=== PATIENT | female | born 1965 | race Caucasian/White ===

== ENCOUNTER 2023-01-20 20:25 | Emergency (ER) | payer MEDICAID, SELFPAY ==
[2023-01-20 20:37] VITALS: BP 177/95; PULSE 64; RESP 16; O2SAT 99; BMI 21.4
== END 2023-01-20 21:01 | disposition left against medical advice (07) ==
PROVIDERS: Emergency Provider Emergency Medicine
DX: Z53.21 Procedure and treatment not carried out due to patient leaving prior to being seen by health care provider (principal)

== ENCOUNTER 2023-04-06 13:01 | Outpatient (OUT) | payer MEDICAID, SELFPAY ==
--- NOTE | 2023-04-06 13:03 | MM_ITS ---
Patient Name: JERI SADLER MR#: [id number] : 1965 Exam Date: 04/06/2023 Ordering Doctor: Shaikh Zakia Garcia . RADIOLOGY REPORT PROCEDURE: MM TOMOSYNTHESIS SCREENING BI COMPARISON: None. INDICATIONS: Screening Calculator Name NCI Breast Cancer Risk Assessment Tool 5 Year Breast Cancer Risk 0.90% Lifetime Breast Cancer Risk 5.70% Personal Breast Cancer No Personal Ovarian Cancer No Treatments None Family Cancers None LOCATION: [facility] BREAST COMPOSITION: Scattered areas fibroglandular density. FINDINGS: DIAGNOSTIC CATEGORY 2--BENIGN FINDING: Scattered benign-appearing nodules are present. Scattered benign-appearing calcifications are present. Scattered benign-appearing lymph nodes are present. RIGHT BREAST: No significant suspicious finding. LEFT BREAST: No significant suspicious finding. RECOMMENDATIONS: ROUTINE MAMMOGRAM AND CLINICAL EVALUATION IN 12 MONTHS. PLEASE NOTE: A NORMAL MAMMOGRAM DOES NOT EXCLUDE THE POSSIBILITY OF BREAST CANCER. A CLINICALLY SUSPICIOUS PALPABLE LUMP SHOULD BE BIOPSIED. Dictated by: Pato Owen MD on 04/07/2023 at 09:20 Approved by: Pato Owen MD on 04/07/2023 at 09:21
== END 2023-04-06 13:02 | disposition home or self-care (01) ==
LOC: MAMMO 13:01
PROVIDERS: PCP Internal Medicine; Visit Provider Internal Medicine
DX: Z12.31 Encounter for screening mammogram for malignant neoplasm of breast (principal)
CPT/HCPCS: 77063; 77067

== ENCOUNTER 2023-07-01 16:35 | Emergency (ER) | payer MEDICAID, SELFPAY ==
[2023-07-01 16:40] VITALS: BP 160/98; PULSE 75; RESP 18; TEMP 36.8; O2SAT 98; BMI 22.4
[2023-07-01 16:49] VITALS: O2SAT 98
--- NOTE | 2023-07-01 16:54 | ED.GENADUL1 ---
HPI - General Adult General Chief complaint: Extremity Injury, Upper Stated complaint: Upper Extremity pain Time Seen by Provider: 07/01/23 16:44 Source: patient and family Mode of arrival: walk-in History of Present Illness HPI narrative: This patient presents with severe pain in her left axillary area. It radiates down into her arm. She has no history of trauma or injury. She has not had previous neck surgery or vascular disease. She was a heavy tobacco user but she said her x-rays have never shown anything abnormal to the best of her knowledge. She he upon further questioning admits that sometimes the hand goes numb. She is right-hand dominant. She said this has been going on for at least 3 to 4 days but she was hesitant to come to the hospital despite her male senior living sales counselor urging her to do so several days ago. She has not had CT or MRI of her neck or chest. She was seen on arrival here and will be given analgesics and imaging will be conducted. Related Data Home Medications Medication Instructions Recorded Confirmed gabapentin 300 mg capsule 300 mg PO QPM 07/01/23 07/01/23 Allergies Allergy/AdvReac Type Severity Reaction Status Date / Time dexamethasone [From Decadron] Allergy Severe Verified 07/01/23 16:47 methylprednisolone Allergy Severe Verified 07/01/23 16:47 [From Solu-Medrol] Penicillins Allergy Severe Verified 07/01/23 16:47 prednisone Allergy Severe Verified 07/01/23 16:47 Exam Constitutional Vital Signs, click to edit/add: Last Vital Signs Temp 98.3 F 07/01/23 16:40 Pulse 75 07/01/23 16:40 Resp 18 07/01/23 16:40 BP 160/98 H 07/01/23 16:40 Pulse Ox 98 07/01/23 16:49 O2 Del Method Room Air 07/01/23 16:49 Course Vital Signs Vital signs: Vital Signs Temperature 98.3 F 07/01/23 16:40 Pulse Rate 75 07/01/23 16:40 Respiratory Rate 18 07/01/23 16:40 Blood Pressure 160/98 H 07/01/23 16:40 Pulse Oximetry 98 07/01/23 16:40 Oxygen Delivery Method Room Air 07/01/23 16:40 Temperature 98.3 F 07/01/23 16:40 Pulse Rate 75 07/01/23 16:40 Respiratory Rate 18 07/01/23 16:40 Blood Pressure 160/98 H 07/01/23 16:40 Pulse Oximetry 98 07/01/23 16:49 Oxygen Delivery Method Room Air 07/01/23 16:49 Medical Decision Making MDM Narrative Medical decision making narrative: This patient is at a CT scan that shows some spinal stenosis. There is an incidental thyroid nodule and this was discussed with the patient and the family. They should have that ultrasound done as an outpatient but that is not an emergency condition at this time. She states that she did not have a severe allergic reaction but when she takes pills it upsets her stomach so she is accepting of an intravenous dose of Decadron. I will also give her analgesics. Her findings and symptoms are most consistent with spinal stenosis in the cervical area. She was told to check her insurance policy and present herself to the tertiary hospital tomorrow morning to have this further evaluated and potentially even going to the emergency room if she cannot get referral to neurology at a tertiary facility. She understands and agrees for that recommendation. She will be given a copy of her CT scan. Discharge Plan Discharge Chief Complaint: Extremity Injury, Upper Clinical Impression: Cervical disc disorder with radiculopathy Patient Disposition: Home, Self-Care Time of Disposition Decision: 19:01 Prescriptions / Home Meds: No Action gabapentin 300 mg capsule 300 mg PO QPM Additional Instructions: Follow-up at tertiary center tomorrow with your CT scans. Omar as needed Referrals: Shaikh Garcia MD [Primary Care Provider] - 1 week Stand Alone Forms: Portal Instructions
--- NOTE | 2023-07-01 16:55 | XR_ITS ---
The [address] [address] Patient Name: JERI SADLER MRN: [id number] date: 1965 Sex: F Assigned Patient Location: ER Current Patient Location: ER Accession/Order Number: [id number] Exam Date: 07/01/2023 15:20 Report Date: 07/01/2023 18:26 At the request of: ESME MCCRARY Procedure: XR chest 1V EXAM: XR chest 1V HISTORY: Left arm and chest pain COMPARISON: None. TECHNIQUE: Chest X-ray AP, 1 view FINDINGS: Support devices: None. Lungs/pleura: No consolidation, effusion, or pneumothorax. Heart and mediastinum: Normal contours. Bones: No acute abnormality identified. XR/XR chest 1V Impression: No radiographic evidence of acute cardiopulmonary process. Electronically authenticated by: FABIANA ERAZO Date: 07/01/2023 18:26
--- NOTE | 2023-07-01 16:57 | CT_ITS ---
The [address] [address] Patient Name: JERI SADLER MRN: [id number] date: 1965 Sex: F Assigned Patient Location: ER Current Patient Location: ER Accession/Order Number: [id number] Exam Date: 07/01/2023 17:26 Report Date: 07/01/2023 18:29 At the request of: ESME MCCRARY Procedure: CT chest w con EXAM: CT chest w con HISTORY: Pain upper left chest left axilla COMPARISON: None. TECHNIQUE: Axial CT imaging was performed through the chest with intravenous contrast. Multiplanar reformats were performed. Dose reduction techniques were achieved by using automated exposure control and/or adjustment of mA and/or kV according to patient size and/or use of iterative reconstruction technique. FINDINGS: Lungs: No consolidation, mass, or effusion. Airways: Normal. Mediastinum: No adenopathy. Aorta: No aneurysm. Cardiac: Normal size. No pericardial effusion. Pulmonary vasculature: Normal morphology. Bones: No acute bony abnormality. Axilla: No adenopathy. Thyroid gland: There is a 0.5 cm low density in the right thyroid gland, may represent thyroid nodule. Correlation with thyroid ultrasound thyroid function tests is recommended. Soft tissues: Unremarkable. Upper abdomen: Small hiatal hernia. Other findings: None. CT/CT chest w con IMPRESSION: No acute abnormality. No lymphadenopathy. Small hiatal hernia. 0.5 cm low density in the right thyroid gland, may represent thyroid nodule. Correlation with thyroid ultrasound thyroid function tests is recommended. Electronically authenticated by: FABIANA ERAZO Date: 07/01/2023 18:29
--- NOTE | 2023-07-01 16:57 | CT_ITS ---
The [address] [address] Patient Name: JERI SADLER MRN: [id number] date: 1965 Sex: F Assigned Patient Location: ER Current Patient Location: ER Accession/Order Number: [id number] Exam Date: 07/01/2023 17:26 Report Date: 07/01/2023 18:31 At the request of: ESME MCCRARY Procedure: CT cervical spine wo con EXAM: CT cervical spine wo con HISTORY: Numbness and weakness of the left arm. TECHNIQUE: Axial CT scans through the cervical spine were obtained without contrast administration. Sagittal and coronal reconstruction images were obtained. Dose reduction techniques were achieved by using: automated exposure control and/or adjustment of mA and /or kV according to patient size and/or use of iterative reconstruction technique. COMPARISON: None. FINDINGS: Reversal of cervical lordosis is present. Decreased disc height from C3 down to T1. A small posterior central disc protrusion each at C3-C4, C4-C5 and C5-C6 without central spinal stenosis. Moderate right C2-C3 facet arthropathy. Moderate-severe stenosis of the left C3-C4 and right C5-C6 neural foramina secondary to decreased disc height and uncovertebral hypertrophy. Prevertebral soft tissue space appears normal. Visualized intracranial contents appear normal. A 1.7 x 1.9 cm right thyroid nodule is present. Visualized neck shows no adenopathy. Visualized lung apices are clear. CT/CT cervical spine wo con IMPRESSION: No central spinal stenosis. Moderate-severe stenosis of the left C3-C4 and right C5-C6 neural foramina secondary to decreased disc height and uncovertebral hypertrophy. A 1.7 x 1.9 cm right thyroid nodule is present. Please consider a thyroid ultrasound on a nonemergent basis. Electronically authenticated by: PATTY NAIR Date: 07/01/2023 18:31
[2023-07-01] MEDS: HYDROMORPHONE HCL 1 MG/ML CARTRIDGE IVP (17:15)
--- OUTSIDE RECORDS SUMMARY | 2023-07-01 17:16 | XMS_ITS | CCD ---
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 may include: Cuts. Bello. Bruises. Sore muscles and muscle strains. Headaches. You may have stiffness and soreness for the first several hours. You may feel worse after waking upthe first morning after the collision. These injuries often feel worse for the first 24 48 hours. Your injuries should then begin to improve with each day. How quickly you improve often depends on: The severity of the collision. The number of injuries you have. The location and nature of the injuries. Whether you were wearing a seat belt and whether your airbag deployed. A head injury may result in a concussion, which is a type of brain injury that can have serious effects. If you have a concussion, you should rest as told by your health care provider. You must be very careful to avoid having a second concussion. Follow these instructions at home: Medicines Take ksfs-fyt-yforoko and prescription medicines only as told by your health care provider. If you were prescribed antibiotic medicine, take or apply it as told by your health care provider. Do not stop using the antibiotic even if your condition improves. If you have a wound or a burn: Clean your wound or burn as told by your health care provider. ?Wash it with mild soap and water. ?Rinse it with water to remove all soap. ?Pat it dry with a clean towel. Do not rub it. ?If you were told to put an ointment or cream on the wound, do so as told by your health care provider. Follow instructions from your health care provider about how to take care of your wound or burn. Make sure you: ?Know when and how to change or remove your bandage (dressing). Always wash your hands with soap and water before and after you change your dressing. If soap and water are not available, use hand electrifier operator. ?Leave stitches (sutures), skin glue, or adhesive strips in place, if this applies. These skin closures may need to stay in place for 2 weeks or longer. If adhesive strip edges start to loosen and curl up, you may trim the loose edges. Do not remove adhesive strips completely unless your health care provider tells you to do that. Do not: ?Scratch or pick at the wound or burn. ?Break any blisters you may have. ?Peel any skin. Avoid exposing your burn or wound to the sun. Raise (elevate) the wound or burn above the level of your heart while you are sitting or lying down. This will help reduce pain, pressure, and swelling. If you have a wound or burn on your face, you may want to sleep with your head elevated. You may do this by putting an extra pillow under your head. Check your wound or burn every day for signs of infection. Check for: ?More redness, swelling, or pain. ?More fluid or blood. ?Warmth. ?Pus or a bad smell. Activity Rest. Rest helps your body to heal. Make sure you: ?Get plenty of sleep at night. Avoid staying up late. ?Keep the same bedtime hours on weekends and weekdays. Ask your health care provider if you have any lifting restrictions. Lifting can make neck or back pain worse. Ask your health care provider when you can drive, ride a bicycle, or use heavy machinery. Your ability to react may be slower if you injured your head. Do not do these activities if you are dizzy. If you are told to wear a brace on an injured arm, leg, or other part of your body, follow instructions from your health care provider about any activity restrictions related to driving, bathing, exercising, or working. General instructions If directed, put ice on the injured areas. This can help with pain and swelling. ?Put ice in a plastic bag. ?Place a towel between your skin and the bag. ?Leave the ice on for 20 minutes, 2 3 times a day. Drink enough fluid to keep your urine pale yellow. Do not drink alcohol. Maintain good nutrition. Keep all follow-up visits as told by your health care provider. This is important. Contact a health care provider if: Your symptoms get worse. You have neck pain that gets worse or has not improved after 1 week. You have signs of infection in a wound or burn. You have a fever. You have any of the following symptoms for more than 2 weeks after your motor vehicle collision: ?Lasting (chronic) headaches. ?Dizziness or balance problems. ?Nausea. ?Vision problems. ?Increased sensitivity to noise or light. ?Depression or mood swings. ?Anxiety or irritability. ?Memory problems. ?Trouble concentrating or paying attention. ?Sleep problems. ?Feeling tired all the time. Get help right away if: You have: ?Numbness, tingling, or weakness in your arms or legs. ?Severe neck pain, especially tenderness in the middle of the back of your neck. ?Changes in bowel or bladder control. ?Increasing pain in any area of your body. ?Swelling in any area of your body, especially your legs. ?Shortness of breath or light-headedness. ?Chest pain. ?Blood in your urine, stool, or vomit. ?Severe pain in your abdomen or your back. ?Severe or worsening headaches. ?Sudden vision loss or double vision. Your eye suddenly becomes red. Your pupil is an odd shape or size. Summary After a motor vehicle collision, it is common to have injuries to the head, face, arms, and body. Follow instructions from your health care provider about how to take care of a wound or burn. If directed, put ice on your injured areas. Contact a health care provider if your symptoms get worse. Keep all follow-up visits as told by your health care provider. This information is not intended to replace advice given to you by your health care provider. Make sure you discuss any questions you have with your health care provider. Document Released: 04/19/2006 Document Revised: 07/03/2019 Document Reviewed: 07/05/2019 [employer] Patient Education 2020 [employer]. 06/29/2022 19:18:05 Cervical Sprain, Aghi-tr-Xcaz Cervical Sprain A cervical sprain is a stretch or tear in the tissues that connect bones (ligaments) in the neck. Most neck (cervical) sprains get better in 4 6 weeks. Follow these instructions at home: If you have a neck collar: Wear it as told by your doctor. Do not take off (do not remove) the collar unless your doctor says that this is safe. Ask your doctor before adjusting your collar. If you have long hair, keep it outside of the collar. Ask your doctor if you may take off the collar for cleaning and bathing. If you may take off the collar: ?Follow instructions from your doctor about how to take off the collar safely. ?Clean the collar by wiping it with mild soap and water. Let it air-dry all the way. ?If your collar has removable pads: ?Take the pads out every 1 2 days. ?Hand wash the pads with soap and water. ?Let the pads air-dry all the way before you put them back in the collar. Do not dry them in a clothes dryer. Do not dry them with a office chair assembler. ?Check your skin under the collar for irritation or sores. If you see any, tell your doctor. Managing pain, stiffness, and swelling Use a cervical traction device, if told by your doctor. If told, put heat on the affected area. Do this before exercises (physical therapy) or as often as told by your doctor. Use the heat source that your doctor recommends, such as a moist heat pack or aheating pad. ?Place a towel between your skin and the heat source. ?Leave the heat on for 20 30 minutes. ?Take the heat off (remove the heat) if your skin turns bright red. This is very important if you cannot feel pain, heat, or cold. You may have a greater risk of getting burned. Put ice on the affected area. ?Put ice in a plastic bag. ?Place a towel between your skin and the bag. ?Leave the ice on for 20 minutes, 2 3 times a day. Activity Do not drive while wearing a neck collar. If you do not have a neck collar, ask your doctor if it is safe to drive. Do not drive or use heavy machinery while taking prescription pain medicine or muscle relaxants, unless your doctor approves. Do not lift anything that is heavier than 10 lb (4.5 kg) until your doctor tells you that it is safe. Rest as told by your doctor. Avoid activities that make you feel worse. Ask your doctor what activities are safe for you. Do exercises as told by your doctor or physical therapist. Preventing neck sprain Practice good posture. Adjust your workstation to help with this, if needed. Exercise regularly as told by your doctor or physical therapist. Avoid activities that are risky or may cause a neck sprain (cervical sprain). General instructions Take yxad-tpj-tnglqyg and prescription medicines only as told by your doctor. Do not use any products that contain nicotine or tobacco. This includes cigarettes and e-cigarettes. If you need help quitting, ask your doctor. Keep all follow-up visits as told by your doctor. This is important. Contact a doctor if: You have pain or other symptoms that get worse. You have symptoms that do not get better after 2 weeks. You have pain that does not get better with medicine. You start to have new, unexplained symptoms. You have sores or irritated skin from wearing your neck collar. Get help right away if: You have very bad pain. You have any of the following in any part of your body: ?Loss of feeling (numbness). ?Tingling. ?Weakness. You cannot move a part of your body (you have paralysis). Your activity level does not improve. Summary A cervical sprain is a stretch or tear in the tissues that connect bones (ligaments) in the neck. If you have a neck (cervical) collar, do not take off the collar unless your doctor says that this is safe. Put ice on affected areas as told by your doctor. Put heat on affected areas as told by your doctor. Good posture and regular exercise can help prevent a neck sprain from happening again. This information is not intended to replace advice given to you by your health care provider. Make sure you discuss any questions you have with your health care provider. Document Released: 10/05/2008 Document Revised: 08/09/2019 Document Reviewed: 12/29/2016 [employer] Patient Education 2020 [employer]. Follow Up Care 06/29/2022 17:32:07 With:LEONARDA MITTAL Address: [facility] [place], [facility] [address] [phone]- Business (1) When:07/02/2022 18:52:34 [facility]12[facility]06[facility]* Encounter Date Diagnosis Assessment Notes Treatment Notes Treatment Clinical Notes Mar, Irritable bowel syndrome with constipation (ICD-10 - K58.1) Start Amitiza 24mcg bid Follow up in 3-4 months Mar, GERD (gastroesophageal reflux disease) (ICD-10 - K21.9) Continue Pantoprazole bid Mar, Epigastric abdominal pain (ICD-10 - R10.13) Mar, Rectal bleeding (ICD-10 - K62.5) [facility] Other 08-10-2022 Evaluation note* Encounter Date Diagnosis Assessment Notes Treatment Notes Treatment Clinical Notes Dec, Irritable bowel syndrome with constipation (ICD-10 - K58.1) Stop Miralax for one week. Then titrate dose as needed according to bowel movements. Dec, Rectal bleeding (ICD-10 - K62.5) Pt to call if bleeding continues Dec, GERD (gastroesophageal reflux disease) (ICD-10 - K21.9) Continue Pantoprazole [facility] Other 02-09-2022 Evaluation note* Encounter Date Diagnosis Assessment Notes Treatment Notes Treatment Clinical Notes Jun, GERD (gastroesophageal reflux disease) (ICD-10 - K21.9) Continue pantoprazole - encouraged patient to take it 30 minutes prior to the first meal and the last meal of the day. Jun, Constipation (ICD-10 - K59.00) Start Miralax powder daily. Titration dose discussed with patient. [facility] Other Evaluation + Plan note No data available for this section [facility] note[facility] assessment information available [facility] Work Phone: Evaluation noteNo InformationNort Peak [employer] Other History and physical note Author Jaime Boyd [facility] April 07, 2022 12:42pm Note Date/Time April 07, 2022 1 2:42pm [facility] [address] [place] [address] Gastroenterology H&P Signed Patient: Magnolia Sadler MR#: [id number] : 1965 Acct:[id number] Age/Sex: 56 / F Adm Date: 2 Loc: Room: Type: [facility] Attending Dr: Jaime Boyd MD Copies to: NON STAFF Jaime Boyd MD~ Date of Service: 04/07/2022 HISTORY & PHYSICAL: Patient's history with special attention to the cardiovascular, pulmonary systems and the current problem was reviewed with the patient immediately prior to the procedure. Present medications and doses reviewed in the EMR. Allergies and pertinent laboratory tests were also reviewedat this time in the EMR. The physical examination, as below, was then performed. Indication, assessment and HPI: 56-year-old pink female presents for flex sig toevaluate rectal bleed Family history of GI malignancy? No PHYSICAL EXAMINATION Mouth and Pharynx : Moist mucus membranes, normal dentition Cardiac: Regular rate, regular rhythm Pulmonary: Clear to auscultation bilaterally, no wheezing Neurological: Alert and oriented x3, no focal deficits noted Abdomen: Abdomen soft, non-tender REVIEW OF SYSTEMS Constitutional: Denies malaise, fevers Cardiovascular: Denies chest pain, palpitations Respiratory: Denies shortness of breath, wheezing Gastrointestinal: Per HPI Genitourinary: Denies dysuria, polyuria Musculoskeletal: Denies joint swelling, joint stiffness Neurological: Denies numbness, tingling Integumentary: Denies rashes, skin lesions Endocrine: Denies fatigue, weight loss Written informed consent obtained from the patient. Risks (including but not limited to perforation, infection, bloating, bleeding, need for emergent surgeryand loss of life), benefits and alternatives explained and questions answered. The patient verbalized understanding. Based on history patient is an appropriate candidate for the procedure. Jaime Boyd MD Documented By: Jaime Boyd MD 04/07/221241 Signed By: <Electronically signed by Jaime Boyd MD> 04/07/22 1242 [facility] Work Phone: [employer] general Narrative - Reported* Type Description Date Surgical History HERNIA REPAIR/BOWEL OBSTRUCTION Surgical History TRIGGER FINGER - MIDDLE FINGER, RIGHT HAND Hospitalization History see above [facility] [employer] Other History general Narrative - Reported* Type Description Date Surgical History hernia repair/bowel obstruction Surgical History trigger finger-middle finger, r ight hand Hospitalization History see above [facility] [employer] Other Progress note No data available for this section [facility] Chief Complaint and Reason for Visit Chief Complaint rectal bleeding, irr itable bowel syndrome with co Family History Relationship Condition Age at Onset Recorded Date/T mao father Diabetes mellitus Unknown Malignant neoplasm of bone Unknown Not Specified Heart disease Unknown Advance Directives Advance Directive Response Recorded Date/ Time Advance Directives No April 9:12am Summary Purpose Additional Source Comments REASON FOR VISIT (unrecogniz ed section and content) PATIENT HERE FOR FOLLOW UP G ERD. PATIENT HAS SEEN DR MYERS IN THE PAST.PATIENT HERE FOR FOLLOW UP CONSTIPATION & GERD. PT WAS TO CONTINUE PANTOPRAZOLE AND START MIRALAX.PATIENT HERE FOR 3 MONTH FOLLOW UPClinicalREFILLFCCC smoking referral Care Teams (unrecognized sec tion and content) Team Status: Inactive Member Role Status Dates NON STAFF Primary Care Provider Active Jaime Boyd MD Attending Provider Active Team Status: Active Member Role Status Dates NON STAFF Primary Care Provider Active INFORMATION SOURCE (unrecogn ized section and content) DATE CREATED AUTHOR 04/08/2022 [facility] DATE CREATED AUTHOR AUTHOR'S ORGANIZ ATION 07/07/2022 [facility] DATE CREATED AUTHOR AUTHOR'S ORGANIZ ATION 07/10/2022 [facility] DATE CREATED AUTHOR AUTHOR'S ORGANIZ ATION 04/30/2023 [facility] EPIC FOR RECORDS PERTAINING TO PATIENTS WHO ARE OR HAVE BEEN ENROLLED IN A CHEMICAL DEPENDENCY/SUBSTANCEABUSE PROGRAM, SOME INFORMATION MAY BE OMITTED. This clinical summary was aggregated from multiple sources. Caution should be exercised in using it in the provision of clinical care. This summary normalizes information from multiple sources, and as a consequence, information in this document may materially change the coding, format and clinical context of patient data. In addition, data may be omitted in some cases. CLINICAL DECISIONS SHOULD BE BASED ON THE PRIMARY CLINICAL RECORDS. [facility] [employer] [facility]. provides no warranty or guarantee of the accuracy or completeness of information in this document.
[2023-07-01 17:18] LABS: Basophils Percent Auto 0.2 % (0.2-2.0); Eosinophils Absolute Auto 0.2 10^3/uL (0.0-0.7); Eosinophils Percent Auto 2.7 % (0.9-7.0); Hematocrit 39.2 % (36.0-48.0); Hemoglobin 12.8 g/dL (12.0-16.0); Immature Granulocytes Abs Auto 0.03 10^3/uL (0.00-0.03); Immature Granulocytes Pct Auto 0.4 % (0.0-0.5); Lymphocytes Absolute Auto 2.3 10^3/uL (1.2-3.8); Lymphocytes Percent Auto 28.7 % (20.5-60.0); Mean Corpuscular HGB Conc 32.7 g/dL (29.9-35.2); Mean Corpuscular Hemoglobin 29.4 pg (26.7-34.0); Mean Corpuscular Volume 90.1 fL (81.0-99.0); Mean Platelet Volume 9.8 fL (9.5-13.5); Monocytes Absolute Auto 0.4 10^3/uL (0.3-0.8); Monocytes Percent Auto 4.4 % (1.7-12.0); Neutrophils Absolute Auto 5.1 10^3/uL (1.4-6.5); Neutrophils Percent Auto 63.6 % (43.0-75.0); Platelet Count 271 10^3/uL (150-450); Red Blood Count 4.35 10^6/uL (4.20-5.40); Red Cell Distribution Width 12.9 % (11.0-15.0)
[2023-07-01 17:39] LABS: Alanine Aminotransferase 15 U/L (14-59); Albumin Globulin Ratio 1.1; Albumin Level 3.7 g/dL (3.4-5.0); Alkaline Phosphatase 74 U/L (46-116); Anion Gap 14.1; Aspartate Amino Transferase 10 U/L (15-37); BUN Creatinine Ratio 17.4; Bilirubin Total 0.6 mg/dL (0.2-1.0); Calcium 8.9 mg/dL (8.5-10.1); Carbon Dioxide 25.4 mmol/L (21.0-32.0); Chloride 106 mmol/L (98-107); Estimated GFR (African America >60 (>=60); Estimated GFR (Non-African Ame 52 (>=60); Globulin 3.5 g/dL; Glucose 105 mg/dL (74-106); Potassium 3.5 mmol/L (3.5-5.1); Sodium 142 mmol/L (136-145); Total Protein 7.2 g/dL (6.4-8.2)
[2023-07-01] MEDS: HYDROMORPHONE HCL 1 MG/ML CARTRIDGE IV (18:49)
[2023-07-01] MEDS: DEXAMETHASONE SOD PHOS 10 MG/ML VIAL IV (19:09)
[2023-07-01 19:24] VITALS: BP 175/94; PULSE 68; RESP 16; TEMP 36.9; O2SAT 98
== END 2023-07-01 19:27 | disposition home or self-care (01) ==
PROVIDERS: Emergency Provider Emergency Medicine Emergency Medical Services; PCP Internal Medicine
DX: M50.10 Cervical disc disorder with radiculopathy, unspecified cervical region (principal); Z79.899 Other long term (current) drug therapy
CPT/HCPCS: 36415; 71045; 71260; 72125; 80053; 85025; 96374; 96375; 96376; 99285; J1100; J1170; Q9967

== ENCOUNTER 2023-11-26 12:24 | Outpatient (OUT) | payer MEDICAID, SELFPAY ==
--- NOTE | 2023-11-26 12:28 | MR_ITS ---
The [address] [address] Patient Name: JERI SADLER MRN: [id number] date: 1965 Sex: F Assigned Patient Location: MRI Current Patient Location: Accession/Order Number: [id number] Exam Date: 11/26/2023 12:40 Report Date: 11/27/2023 14:47 At the request of: SHAIKH MIGUEL Procedure: MR cervical spine wo con MR cervical spine wo con, 11/26/2023 12:40 PM EDT INDICATION: Chronic neck pain with abnormal neurologic exam M54.2 G89.29 COMPARISON: Prior CT of the cervical spine dated 07/01/2023 TECHNIQUE: Multiplanar, multisequential MRI images of cervical spine were obtained without contrast. FINDINGS: There is loss of normal physiologic cervical lordosis. The vertebral heights are relatively preserved. The cervicomedullary junction is unremarkable. No definite signal abnormality within the spinal cord is noted. There are mild disc osteophyte complex associated with uncovertebral joint arthrosis from C3 to T1. At the level of C2-C3, there is mild bilateral neuroforaminal narrowing and no canal stenosis. At the level of C3-C4, there is moderate right and severe left neuroforaminal narrowing and no canal stenosis. At the level of C4-C5, there is severe bilateral neuroforaminal narrowing and moderate canal stenosis. At the level of C5-C6, there is severe bilateral neuroforaminal narrowing and moderate canal stenosis. At the level of C6-C7, there is severe bilateral neuroforaminal narrowing and mild canal stenosis. Level of C7-T1 is unremarkable. No definite muscular or ligamentous injury is noted. MR/MR cervical spine wo con IMPRESSION: Moderate to severe degenerative changes of the cervical spine in particular at C4-C5, C5-C6 and C6-C7. Electronically authenticated by: ALETHEA METCALF Date: 11/27/2023 14:47
--- OUTSIDE RECORDS SUMMARY | 2023-11-26 12:29 | XMS_ITS | CCD ---
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 blood pressure 80 mm[Hg] Jg Cartere [facility] 06-29-2022 18:56-0500 Heart rate 70 /min Jg Cartere [facility] 06-29-2022 18:56-0500 Mean blood pressure 97 mm[Hg] Jg Cartere [facility] 06-29-2022 18:56-0500 Respiratory rate 20 /min Jg Cartere [facility] 06-29-2022 18:56-0500 SaO2% (BldA) [Mass fraction] 97 % Jg Cartere [facility] 06-29-2022 18:56-0500 Systolic blood pressure 130 mm[Hg] Jg Cartere [facility] 06-29-2022 17:42-0500 Body temperature 98.78 [degF] Jg Cartere [facility] 06-29-2022 17:42-0500 Diastolic blood pressure 80 mm[Hg] Jg Cartere [facility] 06-29-2022 17:42-0500 Heart rate 87 /min Jg Cartere [facility] 06-29-2022 17:42-0500 Respiratory rate 20 /min Jg Cartere [facility] 06-29-2022 17:42-0500 SaO2% (BldA) [Mass fraction] 97 % Jg Cartere [facility] 06-29-2022 17:42-0500 Systolic blood pressure 194 mm[Hg] Jg Cartere [facility] 04-07-2022 13:31-0500 Diastolic blood pressure 94 mm[Hg] [facility] 04-07-2022 13:31-0500 Heart rate 64 /min [facility] 04-07-2022 13:31-0500 Respiratory rate 16 /min [facility] 04-07-2022 13:31-0500 SaO2% (BldA) [Mass fraction] 99 % [facility] 04-07-2022 13:31-0500 Systolic blood pressure 128 mm[Hg] [facility] 04-07-2022 11:49-0500 Body height 170.18 cm [facility] 04-07-2022 11:49-0500 Body temperature 98.8 [degF] [facility] 04-07-2022 11:49-0500 Body weight 62.59 kg [facility] 03-17-2022 12:15-0500 Body height 171.45 cm Jaime Boyd Other [facility] [employer] Other 03-17-2022 12:15-0500 Body mass index (BMI) [Ratio] 21.45 kg/m2 Jaime Chavezalfonso Other [email or web address] [facility] [employer] Other 03-17-2022 12:15-0500 Body weight 63.05 kg Jaime Chavezy Other [employer] Other 12-10-2021 14:15-0400 Body height 171.45 cm Jaime Boyd Other [employer] [facility] Other 12-10-2021 14:15-0400 Body mass index (BMI) [Ratio] 21.14 kg/m2 Jaime Estelatty Other [employer] [facility] Other 12-10-2021 14:15-0400 Body weight 62.14 kg Jaime Kathyy Other [employer] [facility] Other 12-10-2021 14:15-0400 Diastolic blood pressure 85 mm[Hg] Jaime Oliver Other [employer] [facility] Other 12-10-2021 14:15-0400 Systolic blood pressure 130 mm[Hg] Jaime Boyd Other [employer] Other 06-11-2021 16:45-0500 Body height 171.45 cm Jaime Boyd Other [employer] [facility] Other 06-11-2021 16:45-0500 Body mass index (BMI) [Ratio] 23.61 kg/m2 Jaime Kathyalfonso Other [employer] Other 06-11-2021 16:45-0500 Body weight 69.4 kg Jaime Oliver Other [employer] [facility] Other Encounters Encounter Date Encounter Type Care Provider Facility Start: 11-18-2023 End: 11-19-2023 ambulatory RAKAN ESTRELLA Not Available Start: 11-16-2023 End: 11-17-2023 ambulatory ANIYA AGUILAR Not Available Start: 11-11-2023 End: 11-17-2023 ambulatory RAKAN Vasquez LYNDAOJZEF Not Available Start: 11-02-2023 End: 11-02-2023 ambulatory ASHER FAWWAD Not Available Start: 07-08-2023 End: 07-08-2023 ambulatory ASHER FAWWAD Not Available Start: 06-08-2023 End: 06-08-2023 ambulatory Lady Cobos Other [employer] Other Start: 06-08-2023 Telephone encounter Lady Cobos [facility] Start: 04-28-2023 End: 04-28-2023 ambulatory ASHER FAWWAD Not Available Start: 07-09-2022 End: 07-09-2022 ambulatory Jaime Boyd Other [employer] Other Start: 07-09-2022 Telephone encounter Jaime [facility] Start: 07-05-2022 End: 07-05-[address] DOCTOR NDIAYE Facility: Start: 06-29-2022 End: 06-29-2022 Emergency department patient visit Jg Solis Facility:[facility] Start: 06-29-2022 End: 06-29-2022 Emergency department patient visit Jg Solis [facility] Start: 04-13-2022 End: 04-13-2022 ambulatory Jaime Boyd Other [facility] [facility] Other Start: 04-13-2022 Telephone encounter Jaime [facility] Start: 04-07-2022 End: 04-07-2022 ambulatory Jaime Boyd Facility:[facility] Start: 04-07-2022 End: 04-07-2022 Admission to same day surgery center [facility] Start: 04-07-2022 End: 04-07-2022 ambulatory [facility]FF [facility] Work Phone: Start: 03-17-2022 End: 03-17-2022 ambulatory Jaime Boyd Other [employer] Other Start: 03-17-2022 Patient encounter procedure Jaime Boyd [facility] Start: 12-10-2021 End: 12-10-2021 ambulatory Jaime Boyd Other [facility] [facility] Other Start: 12-10-2021 Patient encounter procedure Jaime Boyd [facility] Start: 06-11-2021 End: 06-11-2021 ambulatory Jaime Boyd Other [facility] [facility] Other Start: 06-11-2021 Patient encounter procedure Jaime Boyd [facility] Procedures Date Procedure Procedure Detail Performing Clinician Start: 04-07-2022 Flexible fiberoptic sigmoidoscopy Plan of Treatment Date Care Activity Detail Author Start: 04-07-2022 [facility] Patient Education Hemorrhoids [facility] Work Phone: Payers Date Payer Category Payer Medicaid [id number] 2020 Unknown [id number] 2.1 [id number] 1965 Unknown [id number] 2.16.84 [id number] 1965 Unknown [id number] 2.16.8 [id number] 1965 Unknown [id number] 2.16.84 [id number] 1965 Unknown [id number] 2.16.84 [id number] 1965 Unknown [id number] 2.16.84 [id number] 1965 Unknown [id number] 2.16.84 [id number] 1965 Unknown [id number] 2.16.84 [id number] 1965 Unknown [id number] [id number] .[id number] Self-pay Self Pay [id number] Unknown [id number] 2.1 [id number] Unknown [id number] Social History Date Type Detail Facility Unknown if ever smoked [facility] Other Sex Assigned At [facility] Start: 04-07-2022 [facility] Start: 1965 Sex Assigned At Female [facility] Start: 06-29-2022 Tobacco smoking status Light t obacco smoker (finding) [facility] Goals Date Patient Goal Desired Activity /State Functional Status Date Assessment Result Facility 06-29-2022 Functional Status N/A [facility] Clinical Notes 06-11-2021 to 07-09-2022 Note Date & Type Note Facility 07-09-2022 Evaluation note Encounter Date Diagnosis Assessment Notes Jul, Constipation (ICD-10 - K59.00) [facility] Other 02-27-2023 Hospital Discharge instructions Patient Education [...] Follow these instructions at home: Medicines Take lwus-acn-fvrbipt and prescription medicines only as told by [...] and water are not available, use hand eligibility specialist. ?Leave stitches (sutures), skin glue, or adhesive [...] 04/19/2006 Document Revised: 07/03/2019 Document Reviewed: 07/05/2019 [employer] Patient Education 2020 [employer]. 06/29/2022 19:18:05 Cervical Sprain, Mwwj-gl-Nbpd Cervical Sprain A cervical sprain is a [...] dryer. Do not dry them with a mathematics department chair. ?Check your skin under the collar for [...] neck sprain (cervical sprain). General instructions Take kmzk-fcz-wyunjfk and prescription medicines only as told by [...] 10/05/2008 Document Revised: 08/09/2019 Document Reviewed: 12/29/2016 [employer] Patient Education 2020 [employer]. Follow Up Care 06/29/2022 17:32:07 With:LEONARDA MITTAL Address: [address] [place] [address]- Business (1) When:07/02/2022 18:52:34 [facility]12[facility]06[facility]* Encounter Date Diagnosis Assessment Notes Treatment Notes Treatment Clinical Notes 15 Nov, 2022 Irritable bowel syndrome with constipation (ICD-10 - K58.1) Start Amitiza 24mcg bid Follow up in 3-4 months Mar, GERD (gastroesophageal reflux disease) (ICD-10 - K21.9) Continue Pantoprazole bid Mar, Epigastric abdominal pain (ICD-10 - R10.13) Mar, Rectal bleeding (ICD-10 - K62.5) [facility] Other 08-10-2022 Evaluation note* Encounter Date Diagnosis Assessment Notes Treatment Notes Treatment Clinical Notes Dec, Irritable bowel syndrome with constipation (ICD-10 - K58.1) Stop Miralax for one week. Then titrate dose as needed according to bowel movements. Dec, Rectal bleeding (ICD-10 - K62.5) Pt to call if bleeding continues Dec, GERD (gastroesophageal reflux disease) (ICD-10 - K21.9) Continue Pantoprazole [facility] Other 02-09-2022 Evaluation note* Encounter Date Diagnosis Assessment Notes Treatment Notes Treatment Clinical Notes Jun, GERD (gastroesophageal reflux disease) (ICD-10 - K21.9) Continue pantoprazole - encouraged patient to take it 30 minutes prior to the first meal and the last meal of the day. Jun, Constipation (ICD-10 - K59.00) Start Miralax powder daily. Titration dose discussed with patient. [facility] Other Evaluation + Plan note No data available for this section [facility] assessment information available [facility] Work Phone: Evaluation noteNo InformationNort [employer] Other History and physical note Author Jaime Boyd [facility] April 07, 2022 12:42pm Note Date/Time April 07, 2022 1 2:42pm [facility] [address] [place] [address] Gastroenterology H&P Signed Patient: Magnolia Sadler MR#: [id number] : 1965 Acct:[id number] Age/Sex: 56 / F Adm Date: 2 Loc: Room: Type: [facility] Attending Dr: Jaime Boyd MD Copies [...] Boyd MD Documented By: Jaime Boyd MD 04/07/22 124 Signed By: <Electronically signed by Jaime Boyd MD> 04/07/22 1242 [facility] Work Phone: History general Narrative - Reported* Type Description Date Surgical History HERNIA REPAIR/BOWEL OBSTRUCTION Surgical History TRIGGER FINGER - MIDDLE FINGER, RIGHT HAND Hospitalization History see above [facility] Other History general Narrative - Reported* Type Description Date Surgical History hernia repair/bowel obstruction Surgical History trigger finger-middle finger, r ight hand Hospitalization History see above [facility] Other Progress note No data available for this section [facility] Chief Complaint and Reason for Visit Chief Complaint rectal bleeding, irr itable bowel syndrome with co Family History No Family History Records Found Relationship Condition Age at Onset Recorded Date/T mao father Diabetes mellitus Unknown Malignant neoplasm of bone Unknown Not Specified Heart disease Unknown Advance Directives No Advanced Directives Records Found Advance Directive Response Recorded Date/ Time Advance [...] NON STAFF Primary Care Provider Active Jaime Body MD Attending Provider Active Team Status: Active Member Role Status Dates NON STAFF Primary Care Provider Active INFORMATION SOURCE (unrecogn ized section and content) DATE CREATED AUTHOR 04/08/2022 [facility] DATE CREATED AUTHOR AUTHOR'S ORGANIZ ATION 07/07/2022 [facility] DATE CREATED AUTHOR AUTHOR'S ORGANIZ ATION 07/10/2022 [facility] DATE CREATED AUTHOR AUTHOR'S ORGANIZ ATION 11/22/2023 [facility] EPIC FOR RECORDS PERTAINING TO PATIENTS [...] BE BASED ON THE PRIMARY CLINICAL RECORDS. [employer] provides no warranty or guarantee of the accuracy or completeness of information in this document.
== END 2023-11-26 12:25 | disposition home or self-care (01) ==
LOC: MRI 12:24
PROVIDERS: PCP Internal Medicine; Visit Provider Internal Medicine
DX: M54.2 Cervicalgia (principal); G89.29 Other chronic pain
CPT/HCPCS: 72141

== ENCOUNTER 2023-12-01 11:39 | Outpatient (OUT) | payer MEDICAID, SELFPAY ==
--- OUTSIDE RECORDS SUMMARY | 2023-12-01 11:44 | XMS_ITS | CCD ---
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 128 mm[Hg] [facility] 04-07-2022 11:49-0500 Body height 170.18 cm [facility] 04-07-2022 11:49-0500 Body temperature 98.8 [degF] [facility] 04-07-2022 11:49-0500 Body weight 62.59 kg [facility] 03-17-2022 12:15-0500 Body height 171.45 cm Jaime Boyd Other [facility] Other 03-17-2022 12:15-0500 Body mass index (BMI) [Ratio] 21.45 kg/m2 Jaime Chavezalfonso Other [facility] Other 03-17-2022 12:15-0500 Body weight 63.05 kg Jaime Chavezy Other [employer] Other 12-10-2021 14:15-0400 Body height 171.45 cm Jaime Boyd Other [employer] Other 12-10-2021 14:15-0400 Body mass index (BMI) [Ratio] 21.14 kg/m2 Jaime Estelatty Other [employer] Other 12-10-2021 14:15-0400 Body weight 62.14 kg Jaime Kathyy Other [employer] Other 12-10-2021 14:15-0400 Diastolic blood pressure 85 mm[Hg] Jaime Oliver Other [employer] Other 12-10-2021 14:15-0400 Systolic blood pressure 130 mm[Hg] Jaime Boyd Other [employer] Other 06-11-2021 16:45-0500 Body height 171.45 cm Jiame Boyd Other [employer] Other 06-11-2021 16:45-0500 Body mass index (BMI) [Ratio] 23.61 kg/m2 Jaime Kathyalfonso Other [employer] Other 06-11-2021 16:45-0500 Body weight 69.4 kg Jaime Oliver Other [employer] Other Encounters Encounter Date Encounter Type Care Provider Facility Start: 11-18-2023 End: 11-19-2023 ambulatory RAKAN ESTRELLA Not Available Start: 11-16-2023 End: 11-17-2023 ambulatory ANIYA AGUILAR Not Available Start: 11-11-2023 End: 11-17-2023 ambulatory RAKAN Vasquez LYNDAJOZEF Not Available Start: 11-02-2023 End: 11-02-2023 ambulatory ASHER FAWWAD Not Available Start: 07-08-2023 End: 07-08-2023 ambulatory ASHER FAWWAD Not Available Start: 06-08-2023 End: 06-08-2023 ambulatory Lady Cobos Other [employer] Other Start: 06-08-2023 Telephone encounter Lady Cobos [facility] Start: 04-28-2023 End: 04-28-2023 ambulatory ASHER FAWWAD Not Available Start: 07-09-2022 End: 07-09-2022 ambulatory Jaime Boyd Other [employer] Other Start: 07-09-2022 Telephone encounter Jaime [facility] Start: 07-05-2022 End: 07-05-[address] DOCTOR NDIAYE Facility: Start: 06-29-2022 End: 06-29-2022 Emergency department patient visit Jg Solis [place]: 06-29-2022 End: 06-29-2022 Emergency department patient visit Jg Solis [facility] Start: 04-13-2022 End: 04-13-2022 ambulatory Jaime Boyd Other [employer] Other Start: 04-13-2022 Telephone encounter Jaime [facility] Start: 04-07-2022 End: 04-07-2022 ambulatory Jaime Boyd Facility:[facility] Start: 04-07-2022 End: 04-07-2022 Admission to same day surgery center [facility] Start: 04-07-2022 End: 04-07-2022 [facility] Work Phone: Start: 03-17-2022 End: 03-17-2022 ambulatory Jaime Boyd Other [employer] Other Start: 03-17-2022 Patient encounter procedure Jaime Boyd [facility] Start: 12-10-2021 End: 12-10-2021 ambulatory Jaime Boyd Other [employer] Other Start: 12-10-2021 Patient encounter procedure Jaime Boyd [facility] Start: 06-11-2021 End: 06-11-2021 ambulatory Jaime Boyd Other [employer] Other Start: 06-11-2021 Patient encounter procedure Jaime Boyd [facility] Procedures Date Procedure Procedure Detail Performing Clinician Start: 04-07-2022 Flexible fiberoptic sigmoidoscopy Plan of Treatment Date Care Activity Detail Author Start: 04-07-2022 [facility] Patient Education Hemorrhoids [facility] Work Phone: Payers Date Payer Category Payer Medicaid [id number] 2020 Unknown [id number] 2.1 [id number] 1965 Unknown [id number] 2.16.84 [id number] 1965 Unknown [id number] 2.16.8 [id number] 1965 Unknown [id number] 2.16.84 [id number] 1965 Unknown [id number] 2.16.84 [id number] 1965 Unknown [id number] 2.16.84 [id number] 1965 Unknown [id number] 2.16.84 [id number] 1965 Unknown [id number] 2.16.84 [id number] 1965 Unknown [id number] 2.16.840 [id number] Self-pay Self Pay [id number] Unknown [id number] 2.1 [id number] Unknown [id number] Social History Date Type Detail Facility Unknown if ever smoked [employer] Other Sex Assigned At [facility] Start: 04-07-2022 [facility] Start: 1965 Sex Assigned At Female [facility] Start: 06-29-2022 Tobacco smoking status Light t obacco smoker (finding) [facility] Goals Date Patient Goal Desired Activity /State Functional Status Date Assessment Result Facility 06-29-2022 Functional Status N/A [facility] Clinical Notes 06-11-2021 to 07-09-2022 Note Date & Type Note Facility 07-09-2022 Evaluation note Encounter Date Diagnosis Assessment Notes Jul, Constipation (ICD-10 - K59.00) [facility] [facility] Other 02-27-2023 Hospital Discharge instructions Patient Education [...] Follow these instructions at home: Medicines Take yuao-yvi-mvwcmfe and prescription medicines only as told by [...] and water are not available, use hand waterproofer. ?Leave stitches (sutures), skin glue, or adhesive [...] 04/19/2006 Document Revised: 07/03/2019 Document Reviewed: 07/05/2019 [employer] Patient Education [address] 06/29/2022 19:18:05 Cervical Sprain, Rtob-[id number] Cervical Sprain A cervical sprain is a [...] dryer. Do not dry them with a hair weaver. ?Check your skin under the collar for [...] neck sprain (cervical sprain). General instructions Take maua-qyq-pucmgku and prescription medicines only as told by [...] 10/05/2008 Document Revised: 08/09/2019 Document Reviewed: 12/29/2016 [employer] Patient Education [address] Follow Up Care 06/29/2022 17:32:07 With:LEONARDA MITTAL Address: [address] [place] [address]- Business (1) When:07/02/2022 18:52:34 [facility]* Encounter Date Diagnosis Assessment Notes Treatment Notes Treatment Clinical Notes 15 Nov, 2022 Irritable bowel syndrome with constipation (ICD-10 - K58.1) Start Amitiza 24mcg bid Follow up in 3-4 months Mar, GERD (gastroesophageal reflux disease) (ICD-10 - K21.9) Continue Pantoprazole bid Mar, Epigastric abdominal pain (ICD-10 - R10.13) Mar, Rectal bleeding (ICD-10 - K62.5) [employer] Other 08-10-2022 Evaluation note* Encounter Date Diagnosis Assessment Notes Treatment Notes Treatment Clinical Notes Dec, Irritable bowel syndrome with constipation (ICD-10 - K58.1) Stop Miralax for one week. Then titrate dose as needed according to bowel movements. Dec, Rectal bleeding (ICD-10 - K62.5) Pt to call if bleeding continues Dec, GERD (gastroesophageal reflux disease) (ICD-10 - K21.9) Continue Pantoprazole [employer] Other 02-09-2022 Evaluation note* Encounter Date Diagnosis Assessment Notes Treatment Notes Treatment Clinical Notes Jun, GERD (gastroesophageal reflux disease) (ICD-10 - K21.9) Continue pantoprazole - encouraged patient to take it 30 minutes prior to the first meal and the last meal of the day. Jun, Constipation (ICD-10 - K59.00) Start Miralax powder daily. Titration dose discussed with patient. [employer] Other Evaluation + Plan note No data available for this section [facility] information [facility] Work Phone: Evaluation noteNo InformationNort [employer] Other History and physical note Author Jaime Boyd [facility] April 07, 2022 12:42pm Note Date/Time April 07, 2022 1 2:42pm [facility] [address] [place] [address] Gastroenterology H&P Signed Patient: Magnolia Sadler MR#: [id number] : 1965 Acct:[id number] Age/Sex: 56 / F Adm Date: 2 Loc: Room: Type: [facility] Attending Dr: Jaime Boyd MD [...] signed by Jaime Boyd MD> 04/07/22 1242 [facility] Work Phone: History general Narrative - Reported* Type Description Date Surgical History HERNIA REPAIR/BOWEL OBSTRUCTION Surgical History TRIGGER FINGER - MIDDLE FINGER, RIGHT HAND Hospitalization History see above [employer] Other History general Narrative - Reported* Type Description Date Surgical History hernia repair/bowel obstruction Surgical History trigger finger-middle finger, r ight hand Hospitalization History see above [employer] Other Progress note No data available for this section [facility] Chief Complaint and Reason for Visit [...] section and content) DATE CREATED AUTHOR 04/08/2022 [facility] DATE CREATED AUTHOR AUTHOR'S ORGANIZ ATION 07/07/2022 [facility] DATE CREATED AUTHOR AUTHOR'S ORGANIZ ATION 07/10/2022 [facility] DATE CREATED AUTHOR AUTHOR'S ORGANIZ ATION 11/22/2023 [facility] EPIC FOR RECORDS PERTAINING TO [...] BE BASED ON THE PRIMARY CLINICAL RECORDS. [employer] provides no warranty or guarantee of the accuracy or completeness of information in this document.
[2023-12-01 13:09] LABS: Estimated Average Glucose 105 mg/dL; Glycohemoglobin A1C 5.3 % (4.5-6.2)
[2023-12-01 13:24] LABS: Chol HDL Ratio 3.9; Cholesterol 264 mg/dL (<=200); HDL Cholesterol 67 mg/dL (40-60); TSH W/ REFLEX FT4 8.396 uIU/mL (0.358-3.740); Triglycerides 359 mg/dL (<=150); VLDL CHOLESTEROL 71.8 mg/dL
[2023-12-01 13:58] LABS: Free T4 0.68 ng/dL (0.76-1.46)
== END 2023-12-01 11:40 | disposition home or self-care (01) ==
LOC: LAB 11:41
PROVIDERS: PCP Internal Medicine; Visit Provider Internal Medicine
DX: E04.1 Nontoxic single thyroid nodule (principal); G25.81 Restless legs syndrome; Z13.220 Encounter for screening for lipoid disorders; Z13.1 Encounter for screening for diabetes mellitus
CPT/HCPCS: 36415; 80061; 82728; 83036; 84439; 84443

== ENCOUNTER 2023-12-02 13:53 | Outpatient (OUT) | payer MEDICAID, SELFPAY ==
--- NOTE | 2023-12-02 13:55 | US_ITS ---
[address] [address] Patient Name: JERI SADLER MRN: [id number] date: 1965 Sex: F Assigned Patient Location: US Current Patient Location: Accession/Order Number: [id number] Exam Date: 12/02/2023 13:56 Report Date: 12/03/2023 05:23 At the request of: SHAIKH MIGUEL Procedure: US thyroid EXAMINATION: US thyroid HISTORY: Thyroid Nodule COMPARISON: No relevant comparison available. FINDINGS: RIGHT LOBE: Heterogeneous echotexture and hypervascular. Contains a 19 mm TR 3 nodule within inferior pole. Lobe size: 4.9 x 1.3 x 1.5 cm LEFT LOBE: Heterogeneous echotexture and slightly hypervascular. Lobe size: 2.9 x 1.1 x 1.1 cm ISTHMUS: Slightly heterogeneous. Normal thickness. Thickness: 2 mm. US/US thyroid IMPRESSION: 1. 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 2. Right lobe contains a 19 mm TR 3 nodule. Follow-up in one year is recommended. TR3 (mildly suspicious): > 1.5 cm, follow-up ultrasound in 1, 3, and 5 years. > 2.5 cm, fine needle aspiration. Electronically authenticated by: GABBY SINHA Date: 12/03/2023 05:23
--- OUTSIDE RECORDS SUMMARY | 2023-12-02 14:09 | XMS_ITS | CCD ---
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 blood pressure 128 mm[Hg] [facility] 04-07-2022 11:49-0500 Body height 170.18 cm [facility] 04-07-2022 11:49-0500 Body temperature 98.8 [degF] [facility] 04-07-2022 11:49-0500 Body weight 62.59 kg [facility] 03-17-2022 12:15-0500 Body height 171.45 cm Jaime Boyd Other [facility] [employer] Other 03-17-2022 12:15-0500 Body mass index (BMI) [Ratio] 21.45 kg/m2 Jaime Chavezalfonso Other Other [facility] [employer] Other 03-17-2022 12:15-0500 Body weight 63.05 kg Jaime Chavezy Other [facility] Other 12-10-2021 14:15-0400 Body height 171.45 cm Jaime Boyd Other [facility] Other 12-10-2021 14:15-0400 Body mass index (BMI) [Ratio] 21.14 kg/m2 Jaime Estelatty Other [facility] Other 12-10-2021 14:15-0400 Body weight 62.14 kg Jaime Kathyy Other [facility] Other 12-10-2021 14:15-0400 Diastolic blood pressure 85 mm[Hg] Jaime Oliver Other [facility] Other 12-10-2021 14:15-0400 Systolic blood pressure 130 mm[Hg] Jaime Boyd Other [facility] Other 06-11-2021 16:45-0500 Body height 171.45 cm Jaime Boyd Other [facility] Other 06-11-2021 16:45-0500 Body mass index (BMI) [Ratio] 23.61 kg/m2 Jaime Kathyalfonso Other [facility] Other 06-11-2021 16:45-0500 Body weight 69.4 kg Jaime Oliver Other [facility] Other Encounters Encounter Date Encounter Type Care Provider Facility Start: 11-18-2023 End: 11-19-2023 ambulatory RAKAN ESTRELLA Not Available Start: 11-16-2023 End: 11-17-2023 ambulatory ANIYA AGUILAR Not Available Start: 11-11-2023 End: 11-17-2023 ambulatory RAKAN Vasquez LYNDAJOZEF Not Available Start: 11-02-2023 End: 11-02-2023 ambulatory ASHER FAWWAD Not Available Start: 07-08-2023 End: 07-08-2023 ambulatory ASHER FAWWAD Not Available Start: 06-08-2023 End: 06-08-2023 ambulatory Lady Cobos Other [facility] Other Start: 06-08-2023 Telephone encounter Lady Cobos [facility] Start: 04-28-2023 End: 04-28-2023 ambulatory ASHER FAWWAD Not Available Start: 07-09-2022 End: 07-09-2022 ambulatory Jaime Boyd Other [facility] Other Start: 07-09-2022 Telephone encounter Jaime [facility] Start: 07-05-2022 End: 07-05-[address] DOCTOR NDIAYE Facility: Start: 06-29-2022 End: 06-29-2022 Emergency department patient visit Jg Solis Facility:[facility] Start: 06-29-2022 End: 06-29-2022 Emergency department patient visit Jg Solis [facility] Start: 04-13-2022 End: 04-13-2022 ambulatory Jaime Boyd Other [facility] Other Start: 04-13-2022 Telephone encounter Jaime [facility] Start: 04-07-2022 End: 04-07-2022 ambulatory Jaime Boyd Facility:[facility] Start: 04-07-2022 End: 04-07-2022 Admission to same day surgery center [facility] Start: 04-07-2022 End: 04-07-2022 ambulatory NON STAFF [facility] Work Phone: Start: 03-17-2022 End: 03-17-2022 ambulatory Jaime Boyd Other [facility] Other Start: 03-17-2022 Patient encounter procedure Jaime Boyd [facility] Start: 12-10-2021 End: 12-10-2021 ambulatory Jaime Boyd Other [facility] Other Start: 12-10-2021 Patient encounter procedure Jaime Boyd [facility] Start: 06-11-2021 End: 06-11-2021 ambulatory Jaime Boyd Other [facility] Other Start: 06-11-2021 Patient encounter procedure Jaime Boyd [facility] Procedures Date Procedure Procedure Detail Performing Clinician Start: 04-07-2022 Flexible fiberoptic sigmoidoscopy Plan of Treatment Date Care Activity Detail Author Start: 04-07-2022 [facility] Patient Education Hemorrhoids [facility] Work Phone: Payers Date Payer Category Payer Medicaid [id number] 2020 Unknown [id number] 2.1 [id number] 1965 Unknown [id number] 2.16.84 [id number] 1965 Unknown [id number] 2.16.8 [id number] 1965 Unknown [id number] 2.16.84 [id number] 1965 Unknown [id number] 2.16.84 [id number] 1965 Unknown [id number] 2.16.84 [id number] 1965 Unknown [id number] 2.16.84 [id number] 1965 Unknown [id number] 2.16.84 [id number] 1965 Unknown [id number] [id number] Self-pay Self Pay [id number] Unknown [id number] 2.1 [id number] Unknown [id number] Social History Date Type Detail Facility Unknown if ever smoked [facility] Other Sex Assigned At [facility] Start: 04-07-2022 [facility] Start: 1965 Sex Assigned At Female F [facility] Start: 06-29-2022 Tobacco smoking status Light t obacco smoker (finding) [facility] Goals Date Patient Goal Desired Activity /State Functional Status Date Assessment Result Facility 06-29-2022 Functional Status N/A [facility] Clinical Notes 06-11-2021 to 07-09-2022 Note Date & Type Note Facility 07-09-2022 Evaluation note Encounter Date Diagnosis Assessment Notes Jul, Constipation (ICD-10 - K59.00) [facility] Other 02-27-2023 Hospital Discharge instructions Patient Education [...] Follow these instructions at home: Medicines Take urnd-azk-cbebldp and prescription medicines only as told by [...] and water are not available, use 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 ?Leave stitches (sutures), skin glue, or adhesive [...] 04/19/2006 Document Revised: 07/03/2019 Document Reviewed: 07/05/2019 Page Mage Patient Education 2020 Qwilr. 06/29/2022 19:18:05 Cervical Sprain, Rqvd-cq-Ncjt Cervical Sprain A cervical sprain is a [...] dryer. Do not dry them with a applied psychology chair. ?Check your skin under the collar [...] neck sprain (cervical sprain). General instructions Take jxbp-dku-dxrwusu and prescription medicines only as told by [...] 10/05/2008 Document Revised: 08/09/2019 Document Reviewed: 12/29/2016 Page Mage Patient Education 2020 Qwilr. Follow Up Care 06/29/2022 17:32:07 With:LEONARDA MITTAL Address: [address] [place] [address]- Business (1) When:07/02/2022 18:52:34 [facility]12[facility]* Encounter Date Diagnosis Assessment Notes Treatment Notes Treatment Clinical Notes 15 Nov, 2022 Irritable bowel syndrome with constipation (ICD-10 - K58.1) Start Amitiza 24mcg bid Follow up in 3-4 months Mar, GERD (gastroesophageal reflux disease) (ICD-10 - K21.9) Continue Pantoprazole bid Mar, Epigastric abdominal pain (ICD-10 - R10.13) Mar, Rectal bleeding (ICD-10 - K62.5) [facility] Other 08-10-2022 Evaluation note* Encounter Date Diagnosis Assessment Notes Treatment Notes Treatment Clinical Notes Dec, Irritable bowel syndrome with constipation (ICD-10 - K58.1) Stop Miralax for one week. Then titrate dose as needed according to bowel movements. Dec, Rectal bleeding (ICD-10 - K62.5) Pt to call if bleeding continues Dec, GERD (gastroesophageal reflux disease) (ICD-10 - K21.9) Continue Pantoprazole [facility] Other 02-09-2022 Evaluation note* Encounter Date Diagnosis Assessment Notes Treatment Notes Treatment Clinical Notes Jun, GERD (gastroesophageal reflux disease) (ICD-10 - K21.9) Continue pantoprazole - encouraged patient to take it 30 minutes prior to the first meal and the last meal of the day. Jun, Constipation (ICD-10 - K59.00) Start Miralax powder daily. Titration dose discussed with patient. [facility] Other Evaluation + Plan note No data available for this section [facility] information available [facility] Work Phone: Evaluation noteNo InformationNort [employer] Other History and physical note Author Jaime Boyd [facility] April 07, 2022 12:42pm Note Date/Time April 07, 2022 1 2:42pm [facility] [address] [place] [address] Gastroenterology H&P Signed Patient: Magnolia Sadler MR#: [id number] : 1965 Acct:[id number] Age/Sex: 56 / F Adm Date: 2 Loc: Room: Type: [facility] Attending Dr: Jaime Boyd MD Copies to: NON STAFF Jaime oByd MD~ Date of Service: 04/07/2022 HISTORY & [...] signed by Jaime Boyd MD> 04/07/22 1242 [facility] Work Phone: History general Narrative - Reported* Type Description Date Surgical History HERNIA REPAIR/BOWEL OBSTRUCTION Surgical History TRIGGER FINGER - MIDDLE FINGER, RIGHT HAND Hospitalization History see above [facility] Other History general Narrative - Reported* Type Description Date Surgical History hernia repair/bowel obstruction Surgical History trigger finger-middle finger, r ight hand Hospitalization History see above [facility] Other Progress note No data available for this section [facility] Chief Complaint and Reason for Visit Chief [...] section and content) DATE CREATED AUTHOR 04/08/2022 [facility] DATE CREATED AUTHOR AUTHOR'S ORGANIZ ATION 07/07/2022 [facility] DATE CREATED AUTHOR AUTHOR'S ORGANIZ ATION 07/10/2022 [facility] DATE CREATED AUTHOR AUTHOR'S ORGANIZ ATION 11/22/[address] [facility] EPIC FOR RECORDS [...] BE BASED ON THE PRIMARY CLINICAL RECORDS. [employer] provides no warranty or guarantee of the accuracy or completeness of information in this document.
== END 2023-12-02 13:54 | disposition home or self-care (01) ==
LOC: US 13:54
PROVIDERS: PCP Internal Medicine; Visit Provider Internal Medicine
DX: E04.1 Nontoxic single thyroid nodule (principal)
CPT/HCPCS: 76536

== ENCOUNTER 2024-06-15 14:40 | Emergency (ER) | payer MEDICAID, SELFPAY ==
[2024-06-15 14:52] VITALS: BP 127/66; PULSE 78; TEMP 36.8; O2SAT 96; BMI 25.1
--- NOTE | 2024-06-15 14:55 | XR_ITS ---
The [address] [address] Patient Name: JERI SADLER MRN: [id number] date: 1965 Sex: F Assigned Patient Location: ER Current Patient Location: ER Accession/Order Number: [id number] Exam Date: 06/15/2024 15:24 Report Date: 06/15/2024 16:02 At the request of: MEEK LUI Procedure: XR ribs LT min 3V w CXR1V EXAMINATION: XR ribs LT min 3V w CXR1V HISTORY: pain ; left rib pain after falling COMPARISON: No relevant comparison available. FINDINGS: LUNGS: No significant pulmonary parenchymal abnormalities. PLEURA: No pneumothorax, effusion, or pleural thickening. MEDIASTINUM: No visible mass or adenopathy. CARDIAC: No cardiomegaly or cardiac silhouette abnormality. RIBS: No significant arthropathy or acute abnormality. OTHER: Mechanical fusion of lower cervical spine. XR/XR ribs LT min 3V w CXR1V IMPRESSION: 1. No acute cardiopulmonary process. 2. No appreciable rib abnormality. Electronically authenticated by: GABBY SINHA Date: 06/15/2024 16:02
--- NOTE | 2024-06-15 15:03 | XR_ITS ---
The [address] [address] Patient Name: JERI SADLER MRN: [id number] date: 1965 Sex: F Assigned Patient Location: ER Current Patient Location: ER Accession/Order Number: [id number] Exam Date: 06/15/2024 15:24 Report Date: 06/15/2024 16:05 At the request of: MEEK LUI Procedure: XR knee LT 3V PROCEDURE: XR knee LT 3V HISTORY: fall ; left knee pain after falling COMPARISON: None. FINDINGS: BONES:No fracture, acute abnormality, or significant arthropathy. SOFT TISSUES:No visible soft tissue swelling. EFFUSION:None visible. OTHER: Negative. XR/XR knee LT 3V IMPRESSION: 1. No appreciable acute abnormality or significant degenerative changes. Electronically authenticated by: GABBY SINHA Date: 06/15/2024 16:05
--- NOTE | 2024-06-15 15:23 | ED.GENADUL1 ---
HPI HPI - General Adult General Chief complaint: Extremity Injury, Lower Stated complaint: FALL, LOWER EXTREMITY PAIN Time Seen by Provider: 06/15/24 14:48 Mode of arrival: walk-in History of Present Illness HPI narrative: 58-year-old female presents for pain to her left lower ribs and her left knee. She tripped over a box at home and fell hitting these areas. She did not hit her head. She does not complain of shortness of breath. Pain is moderate and worse when she moves. No abdominal pain. Related Data Home Medications ?Medication ?Instructions ?Recorded ?Confirmed gabapentin 300 mg capsule 300 mg PO QPM 07/01/23 07/01/23 Allergies Allergy/AdvReac Type Severity Reaction Status Date / Time dexamethasone (From Decadron) Allergy Severe Verified 07/01/23 16:47 methylprednisolone (From Allergy Severe Verified 07/01/23 16:47 Solu-Medrol) Penicillins Allergy Severe Verified 07/01/23 16:47 prednisone Allergy Severe Verified 07/01/23 16:47 Opioid HPI Opioid Management Most Recent Opioid Data: No Data to Display Review of Systems ROS Narrative A ten point review of systems is negative except as noted above. PFSH PFSH Social History Little interest or pleasure in doing things: not at all Feeling down, depressed, or hopeless: not at all Exam Narrative Exam Narrative: Nurses note and vital signs reviewed and patient is not hypoxic. General: The patient appears well and in no apparent distress. Patient is resting comfortably on cart. Skin: Warm, dry, no pallor noted. There is no rash noted. Head: Normocephalic, atraumatic Eye: Normal conjunctiva, no drainage Ears, Nose, Mouth, and Throat: oral mucosa is moist. Nares patent. Cardiovascular: Regular Rate and Rhythm Respiratory: Patient is in no distress, no accessory muscle use, lungs are clear to auscultation, no wheezing, rales or rhonchi. Breath sounds are equal. Chest wall has some tenderness to palpation in the lower rib region anteriorly and laterally. No Crepitus bruise or abrasion Back: non-tender GI: Soft and nontender Musculoskeletal: The left knee is examined. She has some tenderness but no deformity. Skin intact. No abrasions. Neurological: A&O, normal speech Psychiatric: Cooperative Constitutional Vital Signs, click to edit/add: Last Vital Signs Temp 98.2 F 06/15/24 14:52 Pulse 78 06/15/24 14:52 Resp 18 06/15/24 14:52 BP 127/66 06/15/24 14:52 Pulse Ox 96 06/15/24 14:52 O2 Del Method Room Air 06/15/24 14:52 Course Vital Signs Vital signs: Vital Signs Temperature 98.2 F 06/15/24 14:52 Pulse Rate 78 06/15/24 14:52 Respiratory Rate 18 06/15/24 14:52 Blood Pressure 127/66 06/15/24 14:52 Pulse Oximetry 96 06/15/24 14:52 Oxygen Delivery Method Room Air 06/15/24 14:52 Temperature 98.2 F 06/15/24 14:52 Pulse Rate 78 06/15/24 14:52 Respiratory Rate 18 06/15/24 14:52 Blood Pressure 127/66 06/15/24 14:52 Pulse Oximetry 96 06/15/24 14:52 Oxygen Delivery Method Room Air 06/15/24 14:52 Medical Decision Making MDM Narrative Medical decision making narrative: X-rays of rib and knee are negative. She was recommended ice and rest and ibuprofen. Treatment diagnosis and follow-up were discussed with the patient. Differential Diagnosis Differential Diagnosis: Rib fracture, rib contusion, pneumothorax, knee sprain, knee fracture Imaging Data Rib and the x-rays: Radiologist's impression: ITS Impressions Ribs X-Ray 06/15/24 14:55 IMPRESSION: 1. No acute cardiopulmonary process. 2. No appreciable rib abnormality. Electronically authenticated by: GABBY SINHA Date: 06/15/2024 16:02 Knee X-Ray 06/15/24 15:03 IMPRESSION: 1. No appreciable acute abnormality or significant degenerative changes. Electronically authenticated by: GABBY SINHA Date: 06/15/2024 16:05 Discharge Plan Discharge Chief Complaint: Extremity Injury, Lower Clinical Impression: Contusion of rib, Knee contusion Patient Disposition: Home, Self-Care Time of Disposition Decision: 16:22 Condition: Good Mode of Transportation: Private Vehicle Prescriptions / Home Meds: No Action gabapentin 300 mg capsule 300 mg PO QPM Print Language: Sinhala Instructions: Contusion in Adults (ED), Rib Contusion (ED) Referrals: JAH KITCHEN [Primary Care Provider] - 1 week
== END 2024-06-15 16:34 | disposition home or self-care (01) ==
PROVIDERS: Emergency Provider Emergency Medicine
DX: S80.02XA Contusion of left knee, initial encounter (principal); S20.212A Contusion of left front wall of thorax, initial encounter; W01.0XXA Fall on same level from slipping, tripping and stumbling without subsequent striking against object, initial encounter
CPT/HCPCS: 71101; 73562; 99284

== ENCOUNTER 2024-07-20 17:34 | Emergency (ER) | payer MEDICAID, SELFPAY ==
[2024-07-20 17:38] VITALS: PULSE 78; TEMP 36.8; O2SAT 98; BMI 26.6
--- OUTSIDE RECORDS SUMMARY | 2024-07-20 17:49 | XMS_ITS | CCD ---
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 [facility] 12-06-2023 09:53-0400 Body height 170.18 cm MD Shaikh Garcia Work Phone: [facility] 12-06-2023 09:53-0400 Body weight 72.57 kg MD Shaikh Garcia Work Phone: [facility] 11-03-2023 13:20-0400 Body height 170.18 cm MD Shaikh Garcia Work Phone: [facility] 11-03-2023 13:20-0400 Body mass index (BMI) [Ratio] 25 kg/m2 MD Shaikh Garcia Work Phone: [facility] 11-03-2023 13:20-0400 Body weight 72.57 kg MD Shaikh Garcia Work Phone: [facility] 06-29-2022 18:56-0500 Diastolic blood pressure 80 mm[Hg] Jg Will [facility] 06-29-2022 18:56-0500 Heart rate 70 /min Jg Solsi [facility] 06-29-2022 18:56-0500 Mean blood pressure 97 mm[Hg] Jg Solis [facility] 06-29-2022 18:56-0500 Respiratory rate 20 /min Jg Will [facility] 06-29-2022 18:56-0500 SaO2% (BldA) [Mass fraction] 97 % Jg Solis [facility] 06-29-2022 18:56-0500 Systolic blood pressure 130 mm[Hg] Jg Solis [facility] 06-29-2022 17:42-0500 Body temperature 98.78 [degF] Jg Solis [facility] 06-29-2022 17:42-0500 Diastolic blood pressure 80 mm[Hg] Jg Solis [facility] 06-29-2022 17:42-0500 Heart rate 87 /min Jg Solis [facility] 06-29-2022 17:42-0500 Respiratory rate 20 /min Jg Solis [facility] 06-29-2022 17:42-0500 SaO2% (BldA) [Mass fraction] 97 % Jg Solis [facility] 06-29-2022 17:42-0500 Systolic blood pressure 194 mm[Hg] Jg Solis [facility] 04-07-2022 13:31-0500 Diastolic blood pressure 94 mm[Hg] [facility] 04-07-2022 13:31-0500 Heart rate 64 /min [facility] 04-07-2022 13:31-0500 Respiratory rate 16 /min [facility] 04-07-2022 13:31-0500 SaO2% (BldA) [Mass fraction] 99 % [facility] 04-07-2022 13:31-0500 Systolic blood pressure 128 mm[Hg] [facility] 04-07-2022 11:49-0500 Body height 170.18 cm [facility] 04-07-2022 11:49-0500 Body temperature 98.8 [degF] [facility] 04-07-2022 11:49-0500 Body weight 62.59 kg [facility] 03-17-2022 12:15-0500 Body height 171.45 cm Jaime Dikareyy Other [employer] Other 03-17-2022 12:15-0500 Body mass index (BMI) [Ratio] 21.45 kg/m2 Jaime Ditty Other [employer] Other 03-17-2022 12:15-0500 Body weight 63.05 kg Jaime Ditty Other [employer] Other 12-10-2021 14:15-0400 Body height 171.45 cm Jaime Ditty Other [employer] Other 12-10-2021 14:15-0400 Body mass index (BMI) [Ratio] 21.14 kg/m2 Jaime Ditty Other [employer] Other 12-10-2021 14:15-0400 Body weight 62.14 kg Jaime Ditty Other [employer] Other 12-10-2021 14:15-0400 Diastolic blood pressure 85 mm[Hg] Jaime Ditty Other [employer] Other 12-10-2021 14:15-0400 Systolic blood pressure 130 mm[Hg] Jaime Ditty Other [employer] Other 06-11-2021 16:45-0500 Body height 171.45 cm Jaime Estelatty Other [employer] Other 06-11-2021 16:45-0500 Body mass index (BMI) [Ratio] 23.61 kg/m2 Jaime Boyd Other [facility] Other 06-11-2021 16:45-0500 Body weight 69.4 kg Jaime Boyd Other [employer] Other Encounters Encounter Date Encounter Type Care Provider Facility Start: 05-31-2024 End: 05-31-2024 Refill Andreina Rosstrick [employer] Work Phone: [facility] Comment on above: Hypothyroidism, unsp ecified type (CMS/HCC) Start: 05-08-2024 End: 05-08-2024 Refill Andreina Rosstrick [employer] Work Phone: [facility] Comment on above: Chronic neck pain wi th abnormal neurologic examination Start: 03-07-2024 End: 03-07-2024 Refill Andreina Rosstrick [employer] Work Phone: [facility] Comment on above: Hyperlipidemia, unsp ecified hyperlipidemia type (CMS/HCC) Start: 02-29-2024 End: 02-29-2024 Refill Katina Oro MA [facility] Comment on above: Hyperlipidemia, unsp ecified hyperlipidemia type (CMS/HCC) Hypothyroidism, unsp ecified type (CMS/HCC) Start: 02-24-2024 End: 02-24-2024 Patient encounter procedure MD Shaikh Garcia Work Phone: [facility] Work Phone: Start: 02-24-2024 End: 02-24-2024 ambulatory MD Shaikh Garcia Work Phone: [facility] Work Phone: Start: 02-03-2024 End: 02-03-2024 Patient encounter procedure MD Shaikh Garcia Work Phone: [facility] Work Phone: Start: 01-11-2024 End: 01-11-2024 Refill Andreina Dobbs [employer] Work Phone: [facility] Comment on above: Chronic neck pain wi th abnormal neurologic examination Start: 01-10-2024 Non-patient / Non-visit MD Miguel Angel Garcia Work Phone: [facility] Work Phone: Start: 01-10-2024 End: 01-11-2024 Admission to same day surgery center MD Shaikh Garcia Work Phone: [facility] [place] Start: 01-10-2024 End: 01-11-2024 ambulatory MD Shaikh Garcia Work Phone: [facility] Work Phone: Start: 12-27-2023 End: 12-27-2023 Patient encounter procedure MD Shaikh Garcia Work Phone: [facility]Surgical Testing Work Phone: Start: 12-27-2023 End: 12-27-2023 ambulatory MD Shaikh Garcia Work Phone: [facility] Work Phone: Start: 12-27-2023 Encounter for preprocedural laboratory examination Micheal Canales [facility] Start: 12-21-2023 End: 12-21-2023 Patient encounter procedure MD Shaikh Garcia Work Phone: [facility] Work Phone: Start: 12-20-2023 End: 12-20-2023 Office outpatient visit 25 minutes Andreina Dobbs [employer] Work Phone: [facility] Comment on above: Primary hypertension (CMS/HCC) (Primary Dx); Mixed hyperlipidemia (CMS/HCC); Chronic neck pain with abnormal neurologic examination; Thyroid nodule greater than or equal to 1 cm in diameter incidentally noted on imaging study (CMS/HCC); Acquired hypothyroidism (CMS/HCC) Start: 12-20-2023 End: 12-20-2023 ambulatory ANDREINA DOBBS Not Available Start: 12-06-2023 End: 12-06-2023 ambulatory MD Shaikh Garcia Work Phone: [facility] Work Phone: Start: 12-06-2023 End: 12-06-2023 Departed Referred MD Shaikh Garcia Work Phone: [facility] Work Phone: Start: 11-25-2023 End: 11-25-2023 ambulatory RAKAN ESTRELLA Not Available Start: 11-24-2023 End: 11-24-2023 ambulatory JAVI BERRY Not Available Start: 11-18-2023 End: 11-19-2023 ambulatory RAKAN ESTRELLA Not Available Start: 11-16-2023 End: 11-17-2023 ambulatory ANIYA JEFF Not Available Start: 11-11-2023 End: 11-17-2023 ambulatory RAKAN ESTRELLA Not Available Start: 11-03-2023 End: 11-03-2023 Patient encounter procedure MD Shaikh Garcia Work Phone: [facility] Work Phone: Start: 11-02-2023 End: 11-02-2023 ambulatory SHAIKH JOSE Not Available Start: 07-08-2023 End: 07-08-2023 ambulatory SHAIKH JOSE Not Available Start: 06-08-2023 End: 06-08-2023 ambulatory Lady Cobos Other [employer] Other Start: 06-08-2023 Telephone encounter Lady Cobos [facility] Start: 04-28-2023 End: 04-28-2023 ambulatory SHAIKH JOSE Not Available Start: 07-09-2022 End: 07-09-2022 ambulatory Jaime Boyd Other [employer] Other Start: 07-09-2022 Telephone encounter Jaime ROBLERO [facility] Start: 07-05-2022 End: 07-05-[address] DOCTOR NDIAYE Facility: Start: 06-29-2022 End: 06-29-2022 Emergency department patient visit Jg Solis Facility:[facility] Start: 06-29-2022 End: 06-29-2022 Emergency department patient visit Jg Solis [facility] Start: 04-13-2022 End: 04-13-2022 ambulatory Jaime Boyd Other [employer] Other Start: 04-13-2022 Telephone encounter Jaime ROBLERO [facility] Start: 04-07-2022 End: 04-07-2022 Admission to same day surgery center [facility] Start: 04-07-2022 End: 04-07-2022 ambulatory NON STAFF [facility] Work Phone: Start: 03-17-2022 End: 03-17-2022 ambulatory Jaime Boyd Other [employer] Other Start: 03-17-2022 Patient encounter procedure Jaime Boyd [facility] Start: 12-10-2021 End: 12-10-2021 ambulatory Jaime Boyd Other [employer] Other Start: 12-10-2021 Patient encounter procedure Jaime Chavezy [facility] Start: 06-11-2021 End: 06-11-2021 ambulatory Jaime Chavezy Other [employer] Other Start: 02-09-2022 Patient encounter procedure Jaime Boyd [facility] Procedures Date Procedure Procedure Detail Performing Clinician Start: 02-24-2024 X-ray of cervical spine MD Shaikh Garcia Work Phone: Start: 01-10-2024 OR Cervical Fusion Anterior (Not Applicable) MD Shaikh Garcia Work Phone: Start: 01-10-2024 X-ray of cervical spine MD Shaikh Garcia Work Phone: Start: 04-14-2023 Mammography Andreina akers [employer] Work Phone: Start: 04-07-2022 Flexible fiberoptic sigmoidoscopy Start: 04-02-2022 Colonoscopy Andreina akers [employer] Work Phone: Plan of Treatment Date Care Activity Detail Author Start: 04-02-2032 Screening for malignant neoplasm of colon [facility] Start: 04-14-2024 Screening for malignant neoplasm of breast Mammogram [facility] Start: 03-08-2024 End: 03-08-2024 Patient encounter procedure 03/08/2024 3:00 PM EST Office Visit [facility] [address] [place] [id number] Andreina Dobbs NP [address] [place] [phone] [facility] Start: 02-17-2024 End: 02-17-2024 Patient encounter procedure 02/17/2024 1:00 PM EDT Office Visit [facility] [address] [place] [id number] Andreina Dobbs NP [address] [place] [id number] [facility] Start: 01-17-2024 End: 12-19-2024 TSH W/REFLEX TO FT4 TSH W/REFLEX TO FT4 Lab Routine Thyroid nodule greater than or equal to 1 cm in diameter incidentally noted on imaging study (CMS/HCC) Acquired hypothyroidism (CMS/HCC) Expected: 01/17/2024 (Approximate), Expires: 12/19/2024 [facility] Work Phone: Comment on above: Expected: 01/17/2024 (Approximate), Expires: 12/19/2024 Start: 01-11-2024 [facility] Start: 01-10-2024 Hospital admission [facility] Start: 01-02-2024 Influenza vaccination Influenza Vacc ine (#1) [facility] Start: 04-07-2022 [facility] Start: 11-13-1995 Screening for malignant neoplasm of cervix [facility] Start: 1986 Screening for malignant neoplasm of cervix Pap Smear [facility] Start: 1965 Screening for malignant neoplasm of colon [facility] Patient Education [facility] Work Phone: Patient referral [facility] Work Phone: XR Cervical spine Views W flexion and W extension [facility] Immunizations Immunization Date Immunization Notes Care Provider Carmen ziegler 01-14-2023 influenza virus vaccine, unspecified formulation Andreina Dobbs NP Work Phone: [facility] Payers Date Payer Category Payer Self-pay [id number] 2022 Medicaid [id number] 2022 Medicaid [id number] 2020 Unknown [id number] 2.1 [id number] 1965 Unknown [id number] 2.16.84 [id number] 1965 Unknown [id number] 2.16.8 [id number] 1965 Unknown [id number] 2.16.84 0.1.465310.3.579.2.1258 1965 Unknown [id number] 2.16.84 0.1.449728.3.579.2.1258 1965 Unknown [id number] 2.16.84 0.1.280197.3.579.2.1258 1965 Unknown [id number] 2.16.84 0.1.731826.3.579.2.1258 1965 Unknown [id number] 2.16.84 0.1.603868.3.579.2.1258 1965 Unknown [id number] 2.16.84 0.1.394219.3.579.2.1258 1965 Unknown [id number] 2.16.84 0.1.061848.3.579.2.1258 1965 Unknown [id number] 2.16.84 0.1.233685.3.579.2.1258 1965 Unknown [id number] 2.16.840 .1.394755.3.579.2.1259 Unknown [id number] 2.1 [id number] Unknown [id number] Unknown [id number] 2.16.8 40.1.952715.3.579.2.531 Unknown [id number] 2.16.8 40.1.539918.3.579.2.531 Unknown [id number] 2.16.8 40.1.839473.3.579.2.531 Unknown [id number] 2.16.8 40.1.259449.3.579.2.531 Social History Date Type Detail Facility Unknown if ever smoked [employer] Other Start: 12-20-2023 Sex Assigned At F [facility] Start: 04-07-2022 End: 01-10-2024 Tobacco smoking status DCIS Smoker (finding) [facility] Start: 1965 Sex Assigned At Female F [facility] Start: 06-29-2022 Tobacco smoking status Light t obacco smoker (finding) [facility] Start: 11-02-2023 Tobacco smoking stat us DCIS Smokes tobacco daily [facility] History of tobacco use Cigarette Smoker [facility] History of tobacco use Passive smoker [facility] Start: 12-20-2023 Alcoholic beverage intake Lifetime non-drinker (finding) [facility] Start: 12-20-2023 History of Social function [facility] Start: 1965 Sex assigned at Not on file [facility] Medical Equipment Procedure Code Equipment Code Equipment Origin al Text Equipment Identifier Dates TISSUE LASER [id number] BONE FDA Start: 01-10-2024 TISSUE LASER [id number] BONE FDA Start: 01-10-2024 Spinal fixation plate, non-bioabsorbable ()[id number] FDA Start: 01-10-2024 Spinal fixation plate, non-bioabsorbable ()[id number] FDA Start: 01-10-2024 TISSUE LASER [id number] BONE FDA Start: 01-10-2024 TISSUE LASER [id number] BONE FDA Start: 01-10-2024 Goals Date Patient Goal Desired Activity /State Functional Status Date Assessment Result Facility 01-11-2024 Functional status Patient at Baseline [facility] Work Phone: 06-29-2022 Functional Status N/A [facility] Mental Status Date Assessment Result Facility 01-11-2024 Cognitive function Cognitive Sta tus Patient at Baseline [facility] Work Phone: Clinical Notes 06-11-2021 to 02-29-2024 Telephone Encounter - Katina Oro MA - 02/29/2024 11:57 AM EDTTelephone Encounter - Katina Oro MA - 02/29/2024 11:57 AM EDTTelephone Encounter - Katina Oro MA - 02/29/2024 11:25 AM EDT Note Date & Type Note Facility 02-29-2024 Telephone encount er Note AFSANEH:12/20/2023 [facility] Miscellaneous Notes Formattin g of this note might be different from the original. AFSANEH:12/20/2023 NOV:03/08/2024 documented in this encounter [facility] 02-29-2024 Telephone encount er Note Pt requesting a refill on her lipitor AFSANEH:12/20/2023 NOV:03/08/2024 [facility] 02-29-2024 Miscellaneous Notes Formattin g of this note might be different from the original. Pt requesting a refill on her lipitor AFSANEH:12/20/2023 NOV:03/08/2024 documented in this encounter [facility] 12-20-2023 History of Presen t illness Narrative Associated Problem(s): Primary hypertension (CMS/HCC) Per last OV note pt had elevated BP readings on multiple occasions and was started on Amlodipine 5mg. No order for amlodipine noted in chart or meds- and pt has not been taking. BP is good today in office. Advised pt to continue to monitor BP weekly at home and bring BP log back to next visit. Associated Problem(s): Thyroid nodule greater than or equal to 1 cm in diameter incidentally noted on imaging study (CMS/HCC) US and fine needle biopsy done. Report findings mildly suspicious Will repeat in 1, 3, and 5 years. Associated Problem(s): Acquired hypothyroidism (CMS/HCC) Taking Levothyroxine 75mcg, initiated 2 weeks ago. Will recheck in 6 weeks. Denies Dizziness, Palpitations, Shortness of breath, Jitteriness. Continue Levothyroxine as prescribed. Associated Problem(s): Hyperlipidemia (CMS/HCC) Initiated on Atorvastatin 12/01- did not start taking until last week. Denies myalgias. Will recheck Lipid panel in 6 months Images from the original note were not included. Subjective Patient ID: Magnolia Sadler is a 58 y.o. female who presents for Follow-up (SEEING NEUROSURGEON SHON - DR CANALES - Ramakrishna CARABALLO /). HPI Was here last 11/2023- TSH was high- adjusted dose to Levothyroxine HLD: Was initiated on Atorvastatin 20mg following Lipid panel result 11/30 Lipid panel results below: Component Ref Range & Units 2 wk ago TRIGLYCERIDES <=150 mg/dL 359 High CHOLESTEROL <=200 mg/dL 264 High HDL CHOLESTEROL 40 - 60 mg/dL 67 High Comment: > or =60 mg/dl - LOW CARDIOVASCULAR RISK <40 mg/dl - HIGH CARDIOVASCULAR RISK LDL CHOLESTEROL CALCULATED mg/dL 126.0 Comment: <100 mg/dl OPTIMAL 100-129 mg/dl NEAR OR ABOVE OPTIMAL 130-159 mg/dl BORDERLINE HIGH 160-189 mg/dl HIGH >190 mg/dl VERY HIGH VLDL CHOLESTEROL mg/dL 71.8 CHOL HDL RATIO 3.9 Comment: 3.3 - 4.4 LOW RISK 4.4 - 7.1 AVERAGE RISK 7.1 - 11.0 MODERATE RISK >11.0 HIGH RISK Thyroid Nodule: US fine needle aspirated. Rec. Follow up in one year. Started taking Levothyroxine on 12/05 TSH below: 0 Result Notes 1 Follow-up Encounter Component Ref Range & Units 2 wk ago TSH 0.358 - 3.740 uIU/mL 8.396 High Resulting Agency [facility] Narrative Performed by: [employer] Specimen Collected: 12/01/23 11:49 Last Resulted: 12/01/23 13:30 Denies: Dizziness Palpitations Shortness of breath Jittery Chronic neck/back pain- Seeing Dr. Canales tomorrow for consultation. Review of Systems Constitutional: Negative for activity change, appetite change, chills, diaphoresis, fatigue and fever. HENT: Negative for ear pain, sinus pressure, sinus pain, sneezing, sore throat and trouble swallowing. Respiratory: Negative for apnea, chest tightness, shortness of breath and wheezing. Cardiovascular: Negative for chest pain, palpitations and leg swelling. Gastrointestinal: Negative for abdominal distention, constipation, diarrhea, nausea and vomiting. Genitourinary: Negative for dysuria, frequency, pelvic pain and urgency. Musculoskeletal: Positive for arthralgias and myalgias. Negative for back pain, gait problem and joint swelling. Neurological: Negative for dizziness, speech difficulty, weakness, light-headedness, numbness and headaches. Psychiatric/Behavioral: Negative for dysphoric mood. Endocrine: Negative for polydipsia, polyphagia and polyuria. Objective Physical Exam Vitals reviewed. Constitutional: Appearance: Normal appearance. HENT: Right Ear: Tympanic membrane normal. Left Ear: Tympanic membrane normal. Nose: Nose normal. Mouth/Throat: Mouth: Mucous membranes are moist. Pharynx: Oropharynx is clear. Eyes: Pupils: Pupils are equal, round, and reactive to light. Cardiovascular: Rate and Rhythm: Normal rate and regular rhythm. Pulses: Normal pulses. Heart sounds: Normal heart sounds. Pulmonary: Effort: Pulmonary effort is normal. Breath sounds: Normal breath sounds. Abdominal: General: Bowel sounds are normal. Palpations: Abdomen is soft. Musculoskeletal: General: Normal range of motion. Skin: General: Skin is warm and dry. Capillary Refill: Capillary refill takes less than 2 seconds. Neurological: Mental Status: She is alert and oriented to person, place, and time. Assessment/Plan Problem List Items Addressed This Visit Chronic neck pain with abnormal neurologic examination Thyroid nodule greater than or equal to 1 cm in diameter incidentally noted on imaging study (CMS/HCC) US and fine needle biopsy done. Report findings mildly suspicious Will repeat in 1, 3, and 5 years. Relevant Orders TSH W/REFLEX TO FT4 Primary hypertension (CMS/HCC) - Primary Per last OV note pt had elevated BP readings on multiple occasions and was started on Amlodipine 5mg. No order for amlodipine noted in chart or meds- and pt has not been taking. BP is good today in office. Advised pt to continue to monitor BP weekly at home and bring BP log back to next visit. Hyperlipidemia (CMS/HCC) Initiated on Atorvastatin 12/01- did not start taking until last week. Denies myalgias. Will recheck Lipid panel in 6 months Acquired hypothyroidism (CMS/HCC) Taking Levothyroxine 75mcg, initiated 2 weeks ago. Will recheck in 6 weeks. Denies Dizziness, Palpitations, Shortness of breath, Jitteriness. Continue Levothyroxine as prescribed. Relevant Orders TSH W/REFLEX TO FT4 documented in this encounter [facility] 12-20-2023 Instructions Andreina Dobbs NP - 12/20/2023 9:30 AM EDT *TAKE LEVOTHYROXINE (thyroid medication) at LEAST ONE HOUR BEFORE all other medications or foods.* Your cholesterol is elevated. I would recommend lowering your saturated fat intake (fried foods/fast foods) and increasing your cardiovascular exercise. I would recommend lowering your carbohydrate (bread/sugary food/alcohol) intake to improve your triglycerides. I recommend increasing your dietary intake of poultry, fish, low-fat dairy products, vegetables, fruits, whole grains, legumes, and nuts. Decrease your dietary intake of sodium, sweets, sweetened beverages, and red meats. In addition, increase your exercise to include 150 minutes per week of moderate-intensity, and 75 minutes per week of vigorous aerobic activity Diet: Eat three meals per day. Breakfast, lunch, and dinner. Avoid snacking. Avoid eating after 5/6 pm. Daily protein GOAL 35% of your intake; 30g per meal. Daily calorie GOAL 1,800-2,000 per day. Consider tracking your food intake on My[employer]inessPal or LoseIt Water: Increase water intake; GOAL 64-80oz of water per day. Exercise: Increase activity. GOAL 30 minutes, 5 days per week. START SLOW. Start with 5 minutes, 5 days per week. Then increase to 10 days, 5 days per week. Continue to increase until you reach the goal. Increase steps; GOAL 10,000 steps per day. Be sure to get adequate sleep; GOAL 6-8 hours of sleep per night. INCREASE your cardiovascular ACTIVITY; GOAL 150 minutes per week. AVOID eating less than 2-4 hours before bedtime. AVOID all electronics for 2 hours prior to bedtime. Bed is for SLEEP ONLY. AVOID excessive alcohol intake. AVOID caffeine after 12:00pm. Go to bed when you are tired. If you are not tired that night, push the time back by 30 minutes the next night. Continue to do so until you are able to fall asleep without difficulty. If you wake up in the middle of the night, DO NOT LAY THERE FOR LONGER THAN 40 MINUTES. Once you are up, YOU ARE UP FOR THE DAY. AVOID napping. Get a Lavender diffuser in your bedroom. Melatonin 5mg as needed. Take 30 minutes before bed. documented in this encounter [facility] 07-09-2022 Evaluation note Encounter Date Diagnosis Assessment Notes Jul, Constipation (ICD-10 - K59.00) [facility] Other 02-27-2023 Hospital Discharge instructions Patient Education [...] Follow these instructions at home: Medicines Take dyhc-[id number]-[id number] and prescription medicines only as told by [...] and water are not available, use hand fuel tank sealer and tester. ?Leave stitches (sutures), skin glue, or adhesive [...] 04/19/2006 Document Revised: 07/03/2019 Document Reviewed: 07/05/2019 [employer] Patient Education 2020 [employer]. 06/29/2022 19:18:05 Cervical Sprain, [id number] Cervical Sprain A cervical sprain is a [...] dryer. Do not dry them with a chair installer. ?Check your skin under the collar for [...] neck sprain (cervical sprain). General instructions Take yojl-act-yvauvjo and prescription medicines only as told by [...] 10/05/2008 Document Revised: 08/09/2019 Document Reviewed: 12/29/2016 [employer] Patient Education 2020 [employer]. Follow Up Care 06/29/2022 17:32:07 With:LEONARDA DAXA Address: [address] [facility] [address] [place] [phone] (1) When:07/02/2022 18:52:34 [facility]12[facility]* Encounter Date Diagnosis Assessment Notes Treatment Notes Treatment Clinical Notes Mar, Irritable bowel syndrome with constipation (ICD-10 - K58.1) Start Amitiza 24mcg bid Follow up in 3-4 months Mar, GERD (gastroesophageal reflux disease) (ICD-10 - K21.9) Continue Pantoprazole bid Mar, Epigastric abdominal pain (ICD-10 - R10.13) Mar, Rectal bleeding (ICD-10 - K62.5) [facility] Other 08-10-2022 Evaluation note* Encounter Date Diagnosis Assessment Notes Treatment Notes Treatment Clinical Notes Dec, Irritable bowel syndrome with constipation (ICD-10 - K58.1) Stop Miralax for one week. Then titrate dose as needed according to bowel movements. Dec, Rectal bleeding (ICD-10 - K62.5) Pt to call if bleeding continues Dec, GERD (gastroesophageal reflux disease) (ICD-10 - K21.9) Continue Pantoprazole [facility] Other 02-09-2022 Evaluation note* Encounter Date Diagnosis Assessment Notes Treatment Notes Treatment Clinical Notes Jun, GERD (gastroesophageal reflux disease) (ICD-10 - K21.9) Continue pantoprazole - encouraged patient to take it 30 minutes prior to the first meal and the last meal of the day. Jun, Constipation (ICD-10 - K59.00) Start Miralax powder daily. Titration dose discussed with patient. [facility] Other Evaluation + Plan note No data available for this section [facility] assessment information available [facility] Work Phone: Evaluation noteNo InformationNort [employer] Other Evaluation note* Diagnosis Onset Date Resolution Status Change in bowel habits acute Chronic GERD acute Diarrhea acute Frequent bowel movements acu te Hemorrhoids acute Arthropathy of left shoulder acute Cervical disc disorder at C6-C7 level with radiculopat hy [facility] Work Phone: evaluation note* Diagnosis Onset Date Resolution Status Change in bowel habits acute Chronic GERD acute Diarrhea acute Frequent bowel movements acu te Hemorrhoids acute Arthropathy of left shoulder acute Cervical disc disorder at C6-C7 level with radiculopat hy acute Cervical disc disorder at C6-C7 level with radiculopat hy [facility] Work Phone: evaluation note* Diagnosis Onset Date Resolution Status Arthropathy of left shoulder acute Cervical disc disorder at C6-C7 level with radiculopat hy acute Cervical disc disorder at C6-C7 level with radiculopat hy acute Cervical disc disorder at C6-C7 level with radiculopat hy [facility] Work Phone: evaluation note* Diagnosis Onset Date Resolution Status Arthropathy of left shoulder acute Cervical disc disorder at C6-C7 level with radiculopat hy acute Cervical disc disorder at C6-C7 level with radiculopat hy acute Cervical disc disorder at C6-C7 level with radiculopat hy acute Cervical disc disorder at C6-C7 level with radiculopat hy [facility] Work Phone: Evaluation note* Diagnosis Screening for diabetes mellitus- Primary Screening for hyperlipidemia Screening for lipoid disorders RLS (restless legs syndrome) Restless legs syndrome (RLS) Tobacco dependency Tobacco use disorder Chronic neck pain with abnormal neurologic examination- Primary Thyroid nodule greater than or equal to 1 cm in diameter incidentally noted on imaging study (CMS/HCC) RLS (restless legs syndrome) Restless legs syndrome (RLS) Tobacco dependency Tobacco use disorder Screening for hyperlipidemia Screening for lipoid disorders Screening for diabetes mellitus Chronic neck pain with abnormal neurologic examination- Primary RLS (restless legs syndrome) Restless legs syndrome (RLS) Primary hypertension (CMS/HCC) Unspecified essential hypertension Thyroid nodule greater than or equal to 1 cm in diameter incidentally noted on imaging study (CMS/HCC) Chronic neck pain with abnormal neurologic examination- Primary Primary hypertension (CMS/HCC)- Primary Unspecified essential hypertension Mixed hyperlipidemia (CMS/HCC) Mixed hyperlipidemia Chronic neck pain with abnormal neurologic examination Thyroid nodule greater than or equal to 1 cm in diameter incidentally noted on imaging study (CMS/HCC) Acquired hypothyroidism (CMS/HCC) Unspecified hypothyroidism Hyperlipidemia, unspecified hyperlipidemia type (CMS/HCC) documented in this encounter [facility]* Diagnosis Screening for diabetes mellitus- Primary Screening for hyperlipidemia Screening for lipoid disorders RLS (restless legs syndrome) Restless legs syndrome (RLS) Tobacco dependency Tobacco use disorder Chronic neck pain with abnormal neurologic examination- Primary Thyroid nodule greater than or equal to 1 cm in diameter incidentally noted on imaging study (CMS/HCC) RLS (restless legs syndrome) Restless legs syndrome (RLS) Tobacco dependency Tobacco use disorder Screening for hyperlipidemia Screening for lipoid disorders Screening for diabetes mellitus Chronic neck pain with abnormal neurologic examination- Primary RLS (restless legs syndrome) Restless legs syndrome (RLS) Primary hypertension (CMS/HCC) Unspecified essential hypertension Thyroid nodule greater than or equal to 1 cm in diameter incidentally noted on imaging study (CMS/HCC) Chronic neck pain with abnormal neurologic examination- Primary Primary hypertension (CMS/HCC)- Primary Unspecified essential hypertension Mixed hyperlipidemia (CMS/HCC) Mixed hyperlipidemia Chronic neck pain with abnormal neurologic examination Thyroid nodule greater than or equal to 1 cm in diameter incidentally noted on imaging study (CMS/HCC) Acquired hypothyroidism (CMS/HCC) Unspecified hypothyroidism Hypothyroidism, unspecified type (CMS/HCC) documented in this encounter [facility]* Diagnosis Screening for diabetes mellitus- Primary Screening for hyperlipidemia Screening for lipoid disorders RLS (restless legs syndrome) Restless legs syndrome (RLS) Tobacco dependency Tobacco use disorder Chronic neck pain with abnormal neurologic examination- Primary Thyroid nodule greater than or equal to 1 cm in diameter incidentally noted on imaging study (CMS/HCC) RLS (restless legs syndrome) Restless legs syndrome (RLS) Tobacco dependency Tobacco use disorder Screening for hyperlipidemia Screening for lipoid disorders Screening for diabetes mellitus Chronic neck pain with abnormal neurologic examination- Primary RLS (restless legs syndrome) Restless legs syndrome (RLS) Primary hypertension (CMS/HCC) Unspecified essential hypertension Thyroid nodule greater than or equal to 1 cm in diameter incidentally noted on imaging study (CMS/HCC) Chronic neck pain with abnormal neurologic examination- Primary Primary hypertension (CMS/HCC)- Primary Unspecified essential hypertension Mixed hyperlipidemia (CMS/HCC) Mixed hyperlipidemia Chronic neck pain with abnormal neurologic examination Thyroid nodule greater than or equal to 1 cm in diameter incidentally noted on imaging study (CMS/HCC) Acquired hypothyroidism (CMS/HCC) Unspecified hypothyroidism Hyperlipidemia, unspecified hyperlipidemia type (CMS/HCC) documented in [facility] encounter [facility]* Diagnosis Primary hypertension (CMS/HCC)- Primary Unspecified essential hypertension Mixed hyperlipidemia (CMS/HCC) Mixed hyperlipidemia Chronic neck pain with abnormal neurologic examination Thyroid nodule greater than or equal to 1 cm in diameter incidentally noted on imaging study (CMS/HCC) Acquired hypothyroidism (CMS/HCC) Unspecified hypothyroidism documented [facility] encounter [facility]* Diagnosis Chronic neck pain with abnormal neurologic examination documented [facility] encounter [facility]* Diagnosis Screening for diabetes mellitus- Primary Screening for hyperlipidemia Screening for lipoid disorders RLS (restless legs syndrome) Restless legs syndrome (RLS) Tobacco dependency Tobacco use disorder Chronic neck pain with abnormal neurologic examination- Primary Thyroid nodule greater than or equal to 1 cm in diameter incidentally noted on imaging study (CMS/HCC) RLS (restless legs syndrome) Restless legs syndrome (RLS) Tobacco dependency Tobacco use disorder Screening for hyperlipidemia Screening for lipoid disorders Screening for diabetes mellitus Chronic neck pain with abnormal neurologic examination- Primary RLS (restless legs syndrome) Restless legs syndrome (RLS) Primary hypertension (CMS/HCC) Unspecified essential hypertension Thyroid nodule greater than or equal to 1 cm in diameter incidentally noted on imaging study (CMS/HCC) Chronic neck pain with abnormal neurologic examination- Primary Primary hypertension (CMS/HCC)- Primary Unspecified essential hypertension Mixed hyperlipidemia (CMS/HCC) Mixed hyperlipidemia Chronic neck pain with abnormal neurologic examination Thyroid nodule greater than or equal to 1 cm in diameter incidentally noted on imaging study (CMS/HCC) Acquired hypothyroidism (CMS/HCC) Unspecified hypothyroidism Chronic neck pain with abnormal neurologic examination [facility] Diagnosis Screening for diabetes mellitus- Primary Screening for hyperlipidemia Screening for lipoid disorders RLS (restless legs syndrome) Restless legs syndrome (RLS) Tobacco dependency Tobacco use disorder Chronic neck pain with abnormal neurologic examination- Primary Thyroid nodule greater than or equal to 1 cm in diameter incidentally noted on imaging study (CMS/HCC) RLS (restless legs syndrome) Restless legs syndrome (RLS) Tobacco dependency Tobacco use disorder Screening for hyperlipidemia Screening for lipoid disorders Screening for diabetes mellitus Chronic neck pain with abnormal neurologic examination- Primary RLS (restless legs syndrome) Restless legs syndrome (RLS) Primary hypertension (CMS/HCC) Unspecified essential hypertension Thyroid nodule greater than or equal to 1 cm in diameter incidentally noted on imaging study (CMS/HCC) Chronic neck pain with abnormal neurologic examination- Primary Primary hypertension (CMS/HCC)- Primary Unspecified essential hypertension Mixed hyperlipidemia (CMS/HCC) Mixed hyperlipidemia Chronic neck pain with abnormal neurologic examination Thyroid nodule greater than or equal to 1 cm in diameter incidentally noted on imaging study (CMS/HCC) Acquired hypothyroidism (CMS/HCC) Unspecified hypothyroidism Hypothyroidism, unspecified type (CMS/HCC) documented in this encounter [facility] Author Jaime Boyd [facility] April 07, 2022 12:42pm Note Date/Time April 07, 2022 1 2:42pm [facility] [address] [place] [address] Gastroenterology H&P Signed Patient: Magnolia Sadler MR#: [id number] : 1965 Acct:[id number] Age/Sex: 56 / F Adm Date: 2 Loc: Room: Type: [facility] Attending Dr: Jaime Boyd MD [...] signed by Jaime Boyd MD> 04/07/22 1242 [facility] Work Phone: History general Narrative - Reported* Type Description Date Surgical History HERNIA REPAIR/BOWEL OBSTRUCTION Surgical History TRIGGER FINGER - MIDDLE FINGER, RIGHT HAND Hospitalization History see above [facility] Other History general Narrative - Reported* Type Description Date Surgical History hernia repair/bowel obstruction Surgical History trigger finger-middle finger, r ight hand Hospitalization History see above [facility] Other Hospital Discharge instructions Additional Instructions DISCHARGE INSTRUCTIONS FOR ACDF ANTERIOR CERVICAL DISCECTOMY & FUSION DIET RESTRICTIONS -None unless diabetic or cardiac ACTIVITY -Up in house- activity as tolerated -No lifting over 15 pounds -No driving until seen my physician; may ride in car -May shower in a.m. OTHER -Call your physician's office for any fever, drainage, or chills -Please call your physician's office and make an appointment to see your physician in two weeks. Collar is optional at this time please wear for comfort Use ice for muscle spasm in the back of the neck 20 minutes every 1-2 hours No dressing is needed over the wound there is a liquid bandage.[facility] Work Phone: Progress note No data available for this section [facility] Author Micheal Canales [facility] January 11, 2024 12:43pm Note Date/Time January 11, 2024 12:44pm [facility] [address] [place] [address] Neurosurgery Progress Note Signed Patient: Magnolia Sadler MR#: [id number] : 1965 Acct:[id number] Age/Sex: 58 / F Adm Date: 4 Loc: 4N Room: 4S4908-2 Type: REG SDC Attending Dr: Micheal Canales MD Copies to: ~ Date of Service: 01/11/2024 Subjective Subjective HPI: Patient in bed awake and alert. Says her arm feels better, throat is sore, better than yesterday. Wishes to go home. Exam Physical Exam Vital Signs: Temp Pulse Resp BP Pulse Ox O2 Del Method O2 Flow Rate 98.6 F 59 L 12 135/80 95 Room Air 2 01/11/24 08:00 01/11/24 08:00 01/11/24 08:00 01/11/24 08:00 01/11/24 08:00 01/11/24 08:15 01/11/24 08:15 Narrative: Upper and lower extremity strength and motion baseline Gait grossly normal Voice normal Incision clean and dry Assessment/Plan Assessment/Plan (1) Cervical disc disorder at C6-C7 level with radiculopathy: Plan Increase activity as tolerated. Discharge to home. Discharge instructions given. Documented By: Micheal Canales MD 01/11/24 1236 Signed By: <Electronically signed by MD Micheal Canales> 01/11/24 1243 [facility] Work Phone: Chief Complaint and Reason for Visit Chief Complaint rectal bleeding, irr itable bowel syndrome with co Chief Complaint over due OV Cervicalgia cervical disc disorder Reason for Visit Change in bowel habi ts Chronic GERD Diarrhea Frequent bowel movements Hemorrhoids Arthropathy of left shoulder Cervical disc disorder at C6-C7 level with radiculopathy Chief Complaint over due OV Cervicalgia cervical disc disorder cervical disc disorder cervical disc disorder Reason for Visit Change in bowel habi ts Chronic GERD Diarrhea Frequent bowel movements Hemorrhoids Arthropathy of left shoulder Cervical disc disorder at C6-C7 level with radiculopathy Cervical disc disorder at C6-C7 level with radiculopathy Chief Complaint hemorrhoids Cervicalgia cervical disc disorder cervical disc disorder cervical disc disorder 3 week po ACDF Reason for Visit Arthropathy of left shoulder Cervical disc disorder at C6-C7 level with radiculopathy Cervical disc disorder at C6-C7 level with radiculopathy Cervical disc disorder at C6-C7 level with radiculopathy Chief Complaint hemorrhoids Cervicalgia cervical disc disorder cervical disc disorder cervical disc disorder 3 week po ACDF M54.2 6 week po ACDF W/xray Reason for Visit Arthropathy of left shoulder Cervical disc disorder at C6-C7 level with radiculopathy Cervical disc disorder at C6-C7 level with radiculopathy Cervical disc disorder at C6-C7 level with radiculopathy Cervical disc disorder at C6-C7 level with radiculopathy Family History Relationship Condition Age at Onset Recorded Date/T mao father Diabetes mellitus Unknown Malignant neoplasm of bone Unknown Not Specified Heart disease Unknown Relationship Condition Age at Onset Recorded Date/T mao father Diabetes mellitus Unknown Malignant neoplasm of bone Unknown Heart disease Unknown Unknown Hypertension Unknown mother Heart disease Unknown brother Anxiety Unknown Advance Directives Advance Directive Response Recorded Date/ Time Advance Directives No April 9:12am Advance Directive Response Recorded Date/ Time Advance Directives No April 10:12am Summary Purpose Additional Source Comments REASON FOR VISIT (unrecogniz ed section and content) Reason Onset Date Comments Med Refill 02/29/2024 Reason Onset Date Comments Med Refill 03/07/2024 Reason Comments Follow-up SEEING NEUROSURGEON SHON - DR CANALES - L SHOULDER Reason Onset Date Comments Med Refill 01/11/2024 Reason Onset Date Comments Med Refill 05/08/2024 Reason Onset Date Comments Med Refill 05/31/2024 Care Teams (unrecognized sec tion and content) Team Status: Active Member Role Status Dates NON STAFF Primary Care Provider Active Team Status: Inactive Member Role Status Dates Jaime Boyd MD Attending Provider Active S tart: December 06, 2023 End: December 06, 2023 Shaikh Jose MD Primary Care Provider Active Start: December 06, 2023 End: December 06, 2023 Team Status: Inactive Member Role Status Dates Shaikh Jose MD Primary Care Provider Active Start: December 21, 2023 End: December 21, 2023 Micheal Canales MD Attending Provider Active Star t: December 21, 2023 End: December 21, 2023 Team Status: Inactive Member Role Status Dates Shaikh Jose MD Primary Care Provider Active Start: December 27, 2023 End: December 27, 2023 Micheal Canales MD Attending Provider Active Star t: December 27, 2023 End: December 27, 2023 Team Status: Inactive Member Role Status Dates Shaikh Jose MD Primary Care Provider Active Start: January 10, 2024 End: January 11, 2024 Micheal Canales MD Attending Provider Active Star t: January 10, 2024 End: January 11, 2024 Team Status: Active Member Role Status Dates Shaikh Jose MD Primary Care Provider Active Start: January 10, 2024 Micheal Canales MD Attending Provider, Other Provider Active Start: January 10, 2024 Team Status: Inactive Member Role Status Dates Shaikh Jose MD Primary Care Provider Active Start: February 03, 2024 End: February 03, 2024 Micheal Canales MD Attending Provider Active Star t: February 03, 2024 End: February 03, 2024 Team Status: Inactive Member Role Status Dates NON STAFF Primary Care Provider Active Start: February 24, 2024 End: February 24, 2024 Micheal Canales MD Attending Provider Active Star t: February 24, 2024 End: February 24, 2024 Team Status: Inactive Member Role Status Dates Micheal Canales MD Attending Provider Active Star t: February 24, 2024 End: February 24, 2024 NON STAFF Primary Care Provider Active Start: February 24, 2024 End: February 24, 2024 Team Status: Inactive Member Role Status Dates NON STAFF Primary Care Provider Active Jaime Boyd MD Attending Provider Active Team Status: Active Member Role Status Dates Shaikh Jose MD Primary Care Provider Active Team Status: Inactive Member Role Status Dates NON STAFF Primary Care Provider Active Start: November 03, 2023 End: November 03, 2023 Jaime Boyd MD Attending Provider Active S tart: November 03, 2023 End: November 03, 2023 Watch Dial Printer Relationship Specialty Start Date End Date Unallocated, [place] [address] PCP - General Family Medicine 02/22/24 Andreina Dobbs NP [address] [place] [address] [place] [id number] Nurse Practitioner Family Medicine 02/22/24 Watch Dial Printer Relationship Specialty Start Date End Date Price Sheppard MD [address] [place] [address] PCP - General Family Medicine 03/02/24 Andreina Dobbs NP [address] [place] [address] Nurse Practitioner Family Medicine 02/22/24 Watch Dial Printer Relationship Specialty Start Date End Date Shaikh Garcia MD [address] [place] [address] PCP - General Internal Medicine 07/08/23 Watch Dial Printer Relationship Specialty Start Date End Date Shaikh Garcia MD [address] [place] [address] PCP - General Internal Medicine 07/08/23 Watch Dial Printer Relationship Specialty Start Date End Date Price Sheppard MD [address] [place] [address] PCP - General Family Medicine 03/02/24 Candida Vallejo MD [address] [place] [address] PCP - [facility] 02/01/24 Andreina Dobbs NP [address] [place] [address] Nurse Practitioner Family Medicine 10/22/24 INFORMATION SOURCE (unrecogn ized section and content) DATE CREATED AUTHOR 07/07/2022 [facility] DATE CREATED AUTHOR AUTHOR'S ORGANIZ ATION 07/10/2022 [facility] DATE CREATED AUTHOR AUTHOR'S ORGANIZ ATION 12/20/2023 [facility] EPIC DATE CREATED AUTHOR AUTHOR'S ORGANIZ ATION 03/05/2024 [facility] Goals (unrecognized section and content) Goals may be documented in a n alternate section FOR RECORDS PERTAINING TO PATIENTS WHO ARE [...] BE BASED ON THE PRIMARY CLINICAL RECORDS. [facility] [employer] provides no warranty or guarantee of the accuracy or completeness of information in this document.
--- NOTE | 2024-07-20 17:52 | ED_ITS ---
HPI HPI - Fall General Chief Complaint: Fall Stated Complaint: POSS BROKEN FOOT-FALL Time Seen by Provider: 07/20/24 17:43 Source: patient Mode of arrival: Wheelchair Limitations: no limitations History of Present Illness HPI Narrative: The patient is a 58-year-old female who fell down yesterday while she was using the steps at home, she mentioned that there was almost 9 step that she fell forward on them while she is going downstairs, patient is complaining of neck pain as well as left arm pain and left ankle pain She have wound in her right hand as well that she sustained yesterday She denies any loss of consciousness denies any other concerns Related Data Home Medications ?Medication ?Instructions ?Recorded ?Confirmed gabapentin 300 mg capsule 300 mg PO QPM 07/01/23 07/01/23 Allergies Allergy/AdvReac Type Severity Reaction Status Date / Time dexamethasone (From Decadron) Allergy Severe Rash Verified 07/20/24 17:38 methylprednisolone (From Allergy Severe Nausea Verified 07/20/24 17:38 Solu-Medrol) Penicillins Allergy Severe Hives Verified 07/20/24 17:38 prednisone Allergy Severe Vomiting Verified 07/20/24 17:38 Opioid HPI Opioid Management Most Recent Pain and Opioid Data: No Data to Display Review of Systems ROS Status of ROS 10 or more systems reviewed and unremark able except as noted in history and below PFSH PFSH Social History Little interest or pleasure in doing things: not at all Feeling down, depressed, or hopeless: not at all Exam Narrative Exam Narrative: Nurses notes and vital signs reviewed and patient is not hypoxic. General: Well-appearing and in no apparent distress. Skin: Warm, dry, no pallor noted. No rash. Head: Normocephalic, atraumatic. Tenderness upon palpation of the lower cervical level at the intervertebral line as well as the paraspinal level Neck: Supple, non-tender. Respiratory: No accessory muscle use or respiratory distress. Back: No midline thoracic or lumbar vertebral tenderness. No CVA tenderness Musculoskeletal: The patient have ecchymosis and swelling on the left elbow medially in addition to the tenderness upon palpation of the humerus on the left side, there is still full range of movement of the left shoulder with pain, patient have tenderness palpation of the left foot laterally In the right hand the patient have 2 spots where she have a puncture like wound, could be from her nails measuring 0.5 cm and 1 mm GI: Abdomen is soft, non-distended. Normal bowel sounds. No masses appreciated. No tenderness to palpation. No rebound, guarding, or rigidity noted. Neurological: A&O x4. No cranial nerve dysfunction observed. Constitutional Vital Signs, click to edit/add: Last Vital Signs Temp 98.2 F 07/20/24 17:38 Pulse 78 07/20/24 17:38 Resp 20 07/20/24 17:38 Pulse Ox 98 07/20/24 17:38 O2 Del Method Room Air 07/20/24 17:38 Course Vital Signs Vital signs: Vital Signs Temperature 98.2 F 07/20/24 17:38 Pulse Rate 78 07/20/24 17:38 Respiratory Rate 20 07/20/24 17:38 Pulse Oximetry 98 07/20/24 17:38 Oxygen Delivery Method Room Air 07/20/24 17:38 Temperature 98.2 F 07/20/24 17:38 Pulse Rate 78 07/20/24 17:38 Respiratory Rate 20 07/20/24 17:38 Pulse Oximetry 98 07/20/24 17:38 Oxygen Delivery Method Room Air 07/20/24 17:38 MDM - Fall MDM Narrative Medical decision making narrative: CT cervical spine shows no acute pathology Discharge Plan Discharge Patient Disposition: Still a Patient
[2024-07-20] MEDS: KETOROLAC TROMETHAMINE 30 MG/ML VIAL IM (18:42)
[2024-07-20] MEDS: ADACEL DIPH,PERTUSS(ACELL),TET VAC/PF 0.5 ML ADULT SYRINGE IM (18:44)
--- NOTE | 2024-07-20 19:09 | PC.NURSE ---
Carlos wrap placed to left ankle and left elbow.
== END 2024-07-20 19:46 | disposition home or self-care (01) ==
PROVIDERS: Emergency Provider Emergency Medicine
DX: S90.32XA Contusion of left foot, initial encounter (principal); S50.02XA Contusion of left elbow, initial encounter; W10.8XXA Fall (on) (from) other stairs and steps, initial encounter
CPT/HCPCS: 72125; 73030; 73060; 73080; 73130; 73610; 73630; 90471; 90715; 96372; 99285; J1885